=== PATIENT | female | born 1940 | race Caucasian/White ===

== ENCOUNTER 2017-01-06 20:19 | Inpatient (IN) | payer MEDICAID ==
[~2017-01-06] VITALS: Ht 134.6 cm; Wt 54.4 kg
[2017-01-06 20:30] VITALS: BP 152/90
[2017-01-06] MEDS ORDERED: ACIDOPHILUS CA1 EAC1 GT (20:51)
[2017-01-06] MEDS ORDERED: NEURONTIN100 MG GT (20:51)
[2017-01-06] MEDS ORDERED: MULTIVITAMINS1 EAC8 GT (20:51)
[2017-01-06] MEDS ORDERED: LEVOTHYROXINE75 MCG GT (20:51)
[2017-01-06] MEDS ORDERED: RIVASTIGMINE3 MG GT (20:51)
[2017-01-06] MEDS ORDERED: VITAMIN C500 M1 GT (20:51)
[2017-01-06] MEDS ORDERED: DUONEB 0.5-3(2.53 ML HHN (20:51)
[2017-01-06] MEDS ORDERED: ZINC SULFATE220 M1 GT (20:51)
[2017-01-06] MEDS ORDERED: NORCO 5-325 TA1 EACH GT (20:51)
[2017-01-06 22:00] VITALS: BP 167/80
[2017-01-06 22:15] LABS: ANION GAP 9 mmol/L (5-15); CARBON DIOXIDE 28 MMOL/L (21-32); CHLORIDE 103 MMOL/L (98-107); CREATININE 0.7 MG/DL (0.55-1.30); POTASSIUM 4.4 MMOL/L (3.5-5.1); SODIUM 139 MMOL/L (136-145)
[2017-01-06 22:16] LABS: INR 0.9 (0.9-1.1); PROTHROMBIN TIME 9.7 SEC (9.30-11.50)
[2017-01-06 22:28] LABS: ALANINE AMINOTRANSFERASE 18 U/L (12-78); ALBUMIN/GLOBULIN RATIO 0.5 (1.0-2.7); ASPARTATE AMINO TRANSFERASE 19 U/L (15-37); CKMB 2.1 NG/ML (0.0-3.6); TOTAL PROTEIN 8.5 G/DL (6.4-8.2)
[2017-01-06 23:10] VITALS: BP 154/68
[2017-01-06 23:13] LABS: BASOPHILS % (AUTO) 1.2 % (0.0-2.0); EOSINOPHILS % (AUTO) 3.3 % (0.0-3.0); LYMPHOCYTES % (AUTO) 28.3 % (20.0-45.0); MEAN CORPUSCULAR HEMOGLOBIN 27.2 PG (27.0-31.0); MEAN CORPUSCULAR HGB CONC 30.5 G/DL (32.0-36.0); MEAN CORPUSCULAR VOLUME 89 FL (80-99); MEAN PLATELET VOLUME 7.9 FL (6.5-10.1); MONOCYTES % (AUTO) 10.7 % (1.0-10.0); NEUTROPHILS % (AUTO) 56.6 % (45.0-75.0); PLATELET COUNT 254 K/UL (150-450); RED CELL DISTRIBUTION WIDTH 14.4 % (11.6-14.8); WHITE BLOOD COUNT 7.8 K/UL (4.8-10.8)
[2017-01-06 23:57] LABS: APPEARANCE,URINE CLEAR; KETONES,URINE NEGATIVE (NEGATIVE); LEUKOCYTE ESTERASE ,URINE 1+ (NEGATIVE); NITRITE,URINE NEGATIVE (NEGATIVE); PH,URINE 7 (4.5-8.0); PROTEIN,URINE NEGATIVE (NEGATIVE); UROBILINOGEN,URINE NORMAL MG/DL (0.0-1.0)
[2017-01-07 00:37] LABS: BACTERIA,URINE FEW /HPF; RBC,URINE 0-2 /HPF (0 - 2); SQUAMOUS EPITHELIAL CELL,UR FEW /LPF (NONE/OCC)
[2017-01-07] MEDS: Enoxaparin 80mg Inj SUBQ SCH ×2 (00:47→10:19)
[2017-01-07] MEDS ORDERED: Albuterol/Ipratropium 3ml neb HHN PRN (01:00)
[2017-01-07] MEDS ORDERED: Acetaminophen 650mg/20.3ml GT PRN (01:30)
--- NOTE | 2017-01-07 02:04 | Emergency Room Report ---
History of Present Illness General Chief Complaint: Lower Extremity Injury Source: Medical Record, EMS Present Illness HPI Patient is 76-year-old female presented after having increased left lower extremity swelling. She gradual onset of symptoms. Patient was sent in by Dr. Enrique for further evaluation and treatment. Patient prior history dementia. She was noted to be somewhat contracted. History is markedly limited by patient's mental status Allergies: Coded Allergies: No Known Allergies (Unverified , 01/06/17) Patient History Past Medical History: see triage record Reviewed Nursing Documentation: PMH: Agreed, PSxH: Agreed Nursing Documentation-PMH History Of Psychiatric Problem: Yes - ALZHEIMERS Review of Systems All Other Systems: limited - by mental status Physical Exam Vital Signs Date Time Temp Pulse Resp B/P (MAP) Pulse Ox O2 Delivery O2 Flow Rate FiO2 01/06/17 20:23 98.1 102 26 152/90 96 Nasal Cannula 2.0 Sp02 EP Interpretation: reviewed, normal General Appearance: alert, non-toxic, Chronically Ill Head: atraumatic Eyes: bilateral eye other - bilateral corneal scarring irregular pupils ENT: normal ENT inspection, hearing grossly normal, normal voice Neck: normal inspection, full range of motion, supple, no bony tend Respiratory: normal inspection, lungs clear, normal breath sounds, no respiratory distress, no retraction, no wheezing Cardiovascular #1: regular rate, rhythm, edema - left leg edema Gastrointestinal: normal inspection, normal bowel sounds, non tender, soft, no guarding, no hernia Genitourinary: no CVA tenderness Musculoskeletal: decreased range of motion Neurologic: alert, responsive, other - slow speech Psychiatric: anxious Medical Decision Making Diagnostic Impression: Primary Impression: DVT (deep venous thrombosis) ER Course Patient presented for extremity pain. Differential diagnosis included but was not limited to fracture, contusion, , deep venous thrombosis, vascular insufficiency, aortic aneurysm, cellulitis. Because of complexity of patient's case laboratory testing and imaging studies were ordered. The patient was noted to have evidence of a popliteal DVT. Patient was given Lovenox subcutaneous. Dr.Ali Arias contacted for inpatient management due to primary physician Labs Test 01/06/17 21:30 01/06/17 22:58 01/06/17 23:00 Prothrombin Time 9.7 SEC (9.30-11.50) Prothromb Time International Ratio 0.9 (0.9-1.1) Activated Partial Thromboplast Time 21 SEC (23-33) Sodium Level 139 MMOL/L (136-145) Potassium Level 4.4 MMOL/L (3.5-5.1) Chloride Level 103 MMOL/L (98-107) Carbon Dioxide Level 28 MMOL/L (21-32) Anion Gap 9 mmol/L (5-15) Blood Urea Nitrogen 18 mg/dL (7-18) Creatinine 0.7 MG/DL (0.55-1.30) Estimat Glomerular Filtration Rate mL/min (>60) Glucose Level 108 MG/DL (74-106) Lactic Acid Level 1.20 mmol/L (0.66-2.22) Calcium Level 9.0 MG/DL (8.5-10.1) Total Bilirubin 0.3 MG/DL (0.2-1.0) Aspartate Amino Transf (AST/SGOT) 19 U/L (15-37) Alanine Aminotransferase (ALT/SGPT) 18 U/L (12-78) Alkaline Phosphatase 228 U/L (46-116) Total Creatine Kinase 41 U/L (26-308) Creatine Kinase MB 2.1 NG/ML (0.0-3.6) Creatine Kinase MB Relative Index 5.1 Troponin I 0.023 ng/mL (0.000-0.056) Total Protein 8.5 G/DL (6.4-8.2) Albumin 3.0 G/DL (3.4-5.0) Globulin 5.5 g/dL Albumin/Globulin Ratio 0.5 (1.0-2.7) White Blood Count 7.8 K/UL (4.8-10.8) Red Blood Count 4.20 M/UL (4.20-5.40) Hemoglobin 11.4 G/DL (12.0-16.0) Hematocrit 37.5 % (37.0-47.0) Mean Corpuscular Volume 89 FL (80-99) Mean Corpuscular Hemoglobin 27.2 PG (27.0-31.0) Mean Corpuscular Hemoglobin Concent 30.5 G/DL (32.0-36.0) Red Cell Distribution Width 14.4 % (11.6-14.8) Platelet Count 254 K/UL (150-450) Mean Platelet Volume 7.9 FL (6.5-10.1) Neutrophils (%) (Auto) 56.6 % (45.0-75.0) Lymphocytes (%) (Auto) 28.3 % (20.0-45.0) Monocytes (%) (Auto) 10.7 % (1.0-10.0) Eosinophils (%) (Auto) 3.3 % (0.0-3.0) Basophils (%) (Auto) 1.2 % (0.0-2.0) Urine Color Pale yellow Urine Appearance Clear Urine pH 7 (4.5-8.0) Urine Specific [place] 1.005 (1.005-1.035) Urine Protein Negative (NEGATIVE) Urine Glucose (UA) Negative (NEGATIVE) Urine Ketones Negative (NEGATIVE) Urine Occult Blood Negative (NEGATIVE) Urine Nitrite Negative (NEGATIVE) Urine Bilirubin Negative (NEGATIVE) Urine Urobilinogen Normal MG/DL (0.0-1.0) Urine Leukocyte Esterase 1+ (NEGATIVE) Urine RBC 0-2 /HPF (0 - 2) Urine WBC 5-10 /HPF (0 - 2) Urine Squamous Epithelial Cells Few /LPF (NONE/OCC) Urine Bacteria Few /HPF (NONE) Last Vital Signs Date Time Temp Pulse Resp B/P (MAP) Pulse Ox O2 Delivery O2 Flow Rate FiO2 01/07/17 00:00 93 01/06/17 23:10 22 154/68 100 Nasal Cannula 3.0 01/06/17 20:30 98.1 Status: improved Disposition: HOME, SELF-CARE Condition: Stable Referrals: NON PHYSICIAN (PCP) Júnior Sahni Jan 07, 2017 02:04
[2017-01-07 04:12] VITALS: BP 190/97
[2017-01-07] MEDS: Norco 5mg/325mg tab GT PRN (05:10)
[2017-01-07 05:14] VITALS: BP 160/97
[2017-01-07 07:12] LABS: BASOPHILS % (AUTO) 1.1 % (0.0-2.0); EOSINOPHILS % (AUTO) 3.5 % (0.0-3.0); LYMPHOCYTES % (AUTO) 25.2 % (20.0-45.0); MEAN CORPUSCULAR HEMOGLOBIN 28.6 PG (27.0-31.0); MEAN CORPUSCULAR HGB CONC 32.2 G/DL (32.0-36.0); MEAN CORPUSCULAR VOLUME 89 FL (80-99); MEAN PLATELET VOLUME 8.6 FL (6.5-10.1); MONOCYTES % (AUTO) 11.3 % (1.0-10.0); NEUTROPHILS % (AUTO) 58.9 % (45.0-75.0); PLATELET COUNT 282 K/UL (150-450); RED BLOOD COUNT 4.16 M/UL (4.20-5.40); RED CELL DISTRIBUTION WIDTH 14.2 % (11.6-14.8); WHITE BLOOD COUNT 6.8 K/UL (4.8-10.8)
[2017-01-07 07:16] LABS: ALANINE AMINOTRANSFERASE 17 U/L (12-78); ALBUMIN/GLOBULIN RATIO 0.6 (1.0-2.7); ANION GAP 8 mmol/L (5-15); ASPARTATE AMINO TRANSFERASE 19 U/L (15-37); CALCIUM 8.8 MG/DL (8.5-10.1); CARBON DIOXIDE 26 MMOL/L (21-32); CHLORIDE 104 MMOL/L (98-107); CREATININE 0.7 MG/DL (0.55-1.30); POTASSIUM 4.2 MMOL/L (3.5-5.1); SODIUM 138 MMOL/L (136-145); TOTAL PROTEIN 8.1 G/DL (6.4-8.2)
[2017-01-07 08:18] VITALS: BP 176/96
[2017-01-07] MEDS ORDERED: Gabapentin 300 MG/6 ML Soln GT SCH (09:00)
[2017-01-07] MEDS: Ascorbic Acid 500mg tab GT SCH (10:14)
[2017-01-07] MEDS: Exelon 1.5mg cap GT SCH ×2 (10:14→17:09)
[2017-01-07] MEDS: Zinc Sulfate 220mg cap GT SCH (10:14)
[2017-01-07] MEDS: Calcium Carbonate 500mg w/Vit D 200iu tab GT SCH (10:15)
[2017-01-07] MEDS: Multivitamins W/Minerals 15 ML UDC GT SCH ×3 (10:15→17:08)
[2017-01-07] MEDS: Lactobacillus-GG tablet GT SCH ×3 (10:19→17:08)
[2017-01-07] MEDS ORDERED: HydrALAZINE 25mg tab GT PRN (11:30)
[2017-01-07 11:34] VITALS: BP 180/96
--- NOTE | 2017-01-07 11:41 | Diagnostic Imaging Report ---
Indication: SOB Technique: One view of the chest Comparison: none Findings: The heart is mildly enlarged. Inspiration is suboptimal. Mild generalized interstitial prominence is probably on the basis of senescent change. No focal airspace consolidation or effusions. There are old healed right rib fracture deformities. Impression: No definite acute process. Findings as noted This agrees with the preliminary interpretation provided by the emergency room physician
[2017-01-07] MEDS ORDERED: Metoprolol Tartrate 12.5mg TAB GT ONE (11:45)
--- NOTE | 2017-01-07 11:48 | Consultation ---
Consult Note Consult Note asked to eval for BP management pateint admitted for DVT Patient is 76-year-old female presented after having increased left lower extremity swelling. She gradual onset of symptoms. Patient was sent in by Dr. Enrique for further evaluation and treatment. Patient prior history dementia. She was noted to be somewhat contracted. History is markedly limited by patient's mental status History Of Psychiatric Problem: Yes - ALZHEIMERS patient's examined and data reviewed Assessment/Plan Imp: HTN- DVT- Anemia- Alzheimers- HypoThyroid- Plan: BP meds- Anemia pineda Monitor labs per orders MAGDY ALONSO Jan 07, 2017 11:48
[2017-01-07] MEDS: Gabapentin 300 MG/6 ML Soln GT SCH ×2 (14:05→17:08)
[2017-01-07 15:42] VITALS: BP 153/101
--- NOTE | 2017-01-07 16:25 | Cardiology Report ---
APPROVED REPORT EKG Measurement Heart [id number] Normal sinus rhythm Inferior infarct, age undetermined Abnormal ECG
[2017-01-07] MEDS ORDERED: Warfarin Sodium 5mg ORAL ONE (17:00)
--- NOTE | 2017-01-07 17:34 | Consultation ---
Consult Note Assessment/Plan pulm consult dict DVT lovenox coumadin CATRACHITA DELAROSA Jan 07, 2017 17:34
[2017-01-07 20:00] VITALS: BP 119/60
[2017-01-07] MEDS: Metoprolol Tartrate 12.5mg TAB GT SCH (20:22)
[2017-01-07] MEDS: Enoxaparin 60mg Inj SUBQ SCH (20:24)
[2017-01-08] VITALS: BP 113/63
--- NOTE | 2017-01-08 | Consultation ---
DATE OF CONSULTATION: PULMONARY CONSULTATION CONSULTING PHYSICIAN: Isiah Winslow M.D. HISTORY OF PRESENT ILLNESS: The patient is a 76-year-old woman with severe dementia who was sent to the emergency department because of left leg swelling. The history is limited to few documents sent with her. She was evaluated in the emergency department and found to have deep vein thrombosis and anticoagulants were given. I was called in consultation. PAST MEDICAL HISTORY: The records indicate that she had a recent left femur fracture, pathologic in nature, possibly due to osteoporosis. She had recent pneumonia and sepsis. There is a longer history of Alzheimer's dementia and hypothyroidism. She is under the care of Dr. Srini Scales at [facility]. ALLERGIES: None known. MEDICATIONS: In the nursing facility, she is on vitamin C, gabapentin, hydrocodone, albuterol, Atrovent, acidophilus, thyroxine, rivastigmine and zinc as well as vitamins. REVIEW OF SYSTEMS: Cannot be obtained. PHYSICAL EXAMINATION: VITAL SIGNS: The patient is hypertensive with blood pressure as high as 190/97 and 180/96. Today, the lowest blood pressure was 153/101. The heart rate is 108 to 113. The temperature is normal. Respirations are normal on nasal cannula. The saturation is 96%. GENERAL: The patient appears awake, but does not respond to verbal stimuli. She is markedly contracted. She appears chronically ill. HEENT: Head is normocephalic. NECK: No jugular vein distention. CHEST: Clear. CARDIAC: Rhythm is regular. Tachycardia. ABDOMEN: Soft with a gastric feeding tube in place. EXTREMITIES: Show some swelling of the left thigh and the knees are contracted up toward the chest. IMPRESSIONS: 1. Deep vein thrombosis, left proximal popliteal vein. 2. History of recent pathologic fracture, left femur. 3. Severe dementia with contractures. 4. Dysphagia with gastric tube. 5. Anemia with hemoglobin of 11.4. 6. Mild hyperglycemia. 7. Protein-calorie malnutrition with albumin of 2.9. PLAN: The patient will be given appropriate injectable anticoagulants and we will start Coumadin for longer-term management. Blood pressure control is under the direction of Dr. Sanchez for Nephrology. I will be happy to follow her with you in the hospital. Isiah Winslow M.D. DR: GARETH JOB#: [id number] CC: Jossie Enrique M.D.; Fax#: [phone] ISIAH WINSLOW M.D. ; FAX#: [phone]
--- NOTE | 2017-01-08 01:30 | Consultation ---
DATE OF CONSULTATION: 01/07/2017 ORTHOPEDIC CONSULTATION REQUESTING PHYSICIAN: Jossie Enrique M.D. HISTORY OF PRESENT ILLNESS: The patient is a 76-year-old female with increased lower extremity swelling who was sent in from the rehabilitation center by Dr. Enrique, concerned that the patient had a fracture of the femur. Orthopedic consultation was obtained for further care and recommendation. PAST MEDICAL HISTORY: Lower extremity contractures and Alzheimer's. PAST SURGICAL HISTORY: Unknown. MEDICATIONS: Reviewed from the intake chart. PHYSICAL EXAMINATION: The patient is a very contracted female. She is in bed. There is no obvious significant ecchymosis. There is some swelling of the left lower extremity. There is no obvious deformity, but severe contractures. Remaining exam is very limited. LABORATORY AND DIAGNOSTIC DATA: Ultrasound of lower extremities shows DVT. Imaging: Outside report from [facility] show recent femur fracture ASSESSMENT: 1. Left femur pathologic fracture secondary to severe osteoporsis/contractures. 2. Left lower extremity deep venous thrombosis. 3. Osteoporosis DISCUSSION: Clearly, she is not a candidate for any type of operative intervention given limited ambulation status, osteoporosis and recent DVT. At this point, recommendation is conservative treatment with appropriate pain medications. In terms of DVT, this can be treated by the PMD. Zacarias Barajas M.D. DR: Ashleigh JOB#: [id number] CC: BARAK
[2017-01-08 04:00] VITALS: BP 101/55
--- NOTE | 2017-01-08 04:01 | History and Physical Report ---
DATE OF ADMISSION: 01/06/2017 NOTE: INCOMPLETE DICTATION HISTORY OF PRESENT ILLNESS: The patient is nonverbal. He had advanced dementia. He was admitted for DVT. cannot get any history from the patient. The patient also has a history of recent left femoral fracture as well as a history of chronically old femoral fracture on the same left side. The patient has pathological fracture due to osteoporosis. The patient was admitted for acute DVT treatment as well. PAST MEDICAL HISTORY: Advanced dementia, neuropathy, hypertension, pathological fracture, osteoporosis, and hypothyroidism. The patient also has severe constipation. PAST SURGICAL HISTORY: None known. MEDICATIONS: Gabapentin, Levoxyl, multivitamin, and zinc sulfate. ALLERGIES: No known drug allergies. SOCIAL HISTORY: Unable to obtain. FAMILY HISTORY: Noncontributory. REVIEW OF SYSTEMS: Unable to obtain. The patient is nonverbal. PHYSICAL EXAMINATION: VITAL SIGNS: Temperature is 98.2 degrees, pulse 108, and blood pressure 163/101. HEENT: PERRLA. NECK: Supple. No lymphadenopathy. CHEST: Clear to auscultation. GI: Soft, nontender, and nondistended. No organomegaly. EXTREMITIES: No edema. Severe contractures. Nonverbal. Jossie Enrique M.D. DR: MISSY JOB#: [id number] CC:
[2017-01-08 07:47] LABS: BASOPHILS % (AUTO) 1.1 % (0.0-2.0); EOSINOPHILS % (AUTO) 3.5 % (0.0-3.0); LYMPHOCYTES % (AUTO) 30.4 % (20.0-45.0); MEAN CORPUSCULAR HEMOGLOBIN 28.7 PG (27.0-31.0); MEAN CORPUSCULAR HGB CONC 32.5 G/DL (32.0-36.0); MEAN CORPUSCULAR VOLUME 89 FL (80-99); MEAN PLATELET VOLUME 8.9 FL (6.5-10.1); MONOCYTES % (AUTO) 10.9 % (1.0-10.0); NEUTROPHILS % (AUTO) 54.2 % (45.0-75.0); PLATELET COUNT 284 K/UL (150-450); RED BLOOD COUNT 3.99 M/UL (4.20-5.40); WHITE BLOOD COUNT 6.6 K/UL (4.8-10.8)
[2017-01-08 08:01] LABS: PROTHROMBIN TIME 10.3 SEC (9.30-11.50)
[2017-01-08 08:15] VITALS: BP 144/73
--- NOTE | 2017-01-08 08:16 | Consultation ---
DATE OF CONSULTATION: 01/07/2017 HEMATOLOGY/ONCOLOGY CONSULTATION REQUESTING PHYSICIAN: Jossie Enrique M.D. REASON FOR CONSULTATION: Evaluation and treatment of DVT. IDENTIFYING DATA: Dear Dr. Enrique, The patient is a pleasant 76-year-old female who was diagnosed with nonocclusive thrombus in the proximal popliteal vein with contracture noted. The patient has been started on Lovenox and Coumadin. Her past medical history significant for DVT. Pulmonary team as well as Nephrology were consulted. The patient also has Alzheimer disease, hypothyroidism, currently is stable. Hematology service was consulted for further evaluation and treatment of DVT. PAST MEDICAL HISTORY: Hypertension, anemia, Alzheimer disorder, and hypothyroidism. PAST SURGICAL HISTORY: None reported. ALLERGIES: No known drug allergies. REVIEW OF SYSTEMS: CONSTITUTIONAL: No fevers, chills, or night sweats. SKIN: No rashes, bumps, or itching. HEENT: No headache, hearing or vision changes. BREASTS: No lumps, pain, or discharge. PULMONARY: No cough or shortness of breath. GASTROINTESTINAL: No nausea, vomiting, or diarrhea. GENITOURINARY: No dysuria, frequency, or urgency. MUSCULOSKELETAL: No joint swelling, muscle pain, or trauma. PHYSICAL EXAMINATION: GENERAL: No acute distress. VITAL SIGNS: Reviewed. PULMONARY: Decreased breath sounds. CARDIOVASCULAR: Regular rate. No S3 or S4. ABDOMEN: Soft, nontender, and nondistended. EXTREMITIES: There is 1+ edema. LABORATORY AND DIAGNOSTIC DATA: WBC of 6.8, hemoglobin 11.9, hematocrit 36, and platelet count 182,000. INR 0.9. Chemistry, BUN of 19 and creatinine 0.7. ASSESSMENT AND RECOMMENDATIONS: 1. Deep vein thrombosis history, left leg. The patient started on Coumadin and Lovenox. Maintain INR between 2 and 3. The patient will need three months of anticoagulation. 2. Anemia secondary to chronic disease, mild. Continue to closely monitor. 3. Coagulopathy secondary to use of Coumadin. 4. Azotemia secondary to dehydration. 5. Malnutrition secondary to decreased p.o. intake. 6. Acute kidney injury. Unclear related to dehydration. Continue to closely monitor. Nephrology consulted. 7. Alzheimer disorder. Continue to monitor as an outpatient. I appreciate the consultation. Frandy Flores M.D. DR: JANN JOB#: [id number] CC:
--- NOTE | 2017-01-08 08:16 | History and Physical Report ---
DATE OF ADMISSION: 01/06/2017 HISTORY OF PRESENT ILLNESS: The patient is nonverbal and is admitted for acute DVT by Dr. Winslow and acute left femoral fracture. The patient osteoporosis. The patient is nonverbal. Cannot get any history from the patient. PAST MEDICAL HISTORY: Significant for advanced dementia, pathological fracture, osteoporosis, hypothyroidism, neuropathy, advanced dementia, severe contractures. ALLERGIES: No known allergies. PAST SURGICAL HISTORY: None. MEDICATIONS: Vitamin C, Neurontin, Levoxyl, multivitamin, . FAMILY HISTORY: Unable to obtain. SOCIAL HISTORY: Unable to obtain. REVIEW OF SYSTEMS: Unable to obtain. PHYSICAL EXAMINATION: VITAL SIGNS: Temperature is 98.2, pulse 108, blood pressure 163/101. HEENT: PERRLA. NECK: Supple. No lymphadenopathy. CHEST: Clear to auscultation. GASTROINTESTINAL: Soft, nontender and nondistended. No organomegaly. EXTREMITIES: Severe contractures. the patient does not show any grimaces. Nonverbal. LABORATORY AND DIAGNOSTIC DATA: Sodium 139, potassium 3.4, BUN of 15, creatinine 0.7 and glucose of 108. WBC of 7.8, hemoglobin 11.4 and platelets of 254. ASSESSMENT AND PLAN: 1. Deep venous thrombosis. I have asked to see the patient for the treatment of deep venous thrombosis. 2. Acute femoral fracture. I have asked to see the patient. At this point, I am doubtful that the patient will be a surgical candidate given her severe and DVT. Definitely I doubt that she will be a surgical candidate, although I will wait for . 3. Hypertension. I have asked Dr. Sanchez to see the patient for hypertension. Jossie Enrique M.D. DR: TIN JOB#: [id number] CC:
[2017-01-08 08:28] LABS: ALANINE AMINOTRANSFERASE 23 U/L (12-78); ALBUMIN/GLOBULIN RATIO 0.5 (1.0-2.7); ANION GAP 8 mmol/L (5-15); ASPARTATE AMINO TRANSFERASE 20 U/L (15-37); CALCIUM 8.7 MG/DL (8.5-10.1); CARBON DIOXIDE 28 MMOL/L (21-32); CHLORIDE 104 MMOL/L (98-107); CHOLESTEROL 133 MG/DL (< 200); CREATININE 0.7 MG/DL (0.55-1.30); CRP QUANT 2.2 mg/dL (0.00-0.90); FERRITIN 202 NG/ML (8-388); MAGNESIUM 2.1 MG/DL (1.8-2.4); PHOSPHORUS 3.9 MG/DL (2.5-4.9); POTASSIUM 3.7 MMOL/L (3.5-5.1); SODIUM 140 MMOL/L (136-145); THYROID STIMULATING HORMONE 11.546 uiU/mL (0.360-3.740); TOTAL PROTEIN 7.9 G/DL (6.4-8.2); URIC ACID 4.3 MG/DL (2.6-7.2)
[2017-01-08 08:50] LABS: HEMOGLOBIN A1C 6.3 % (4.3-6.0)
[2017-01-08] MEDS: Multivitamins W/Minerals 15 ML UDC GT SCH ×3 (08:51→17:57)
[2017-01-08] MEDS: Gabapentin 300 MG/6 ML Soln GT SCH ×3 (08:51→17:57)
[2017-01-08] MEDS: Exelon 1.5mg cap GT SCH ×2 (08:51→17:57)
[2017-01-08] MEDS: Ascorbic Acid 500mg tab GT SCH (08:52)
[2017-01-08] MEDS: Calcium Carbonate 500mg w/Vit D 200iu tab GT SCH (08:52)
[2017-01-08] MEDS: Lactobacillus-GG tablet GT SCH ×3 (08:52→17:57)
[2017-01-08] MEDS: Zinc Sulfate 220mg cap GT SCH (08:52)
[2017-01-08] MEDS: Enoxaparin 60mg Inj SUBQ SCH ×2 (08:53→20:18)
[2017-01-08] MEDS: Metoprolol Tartrate 12.5mg TAB GT SCH ×2 (08:53→20:17)
[2017-01-08 09:41] LABS: IRON 40 ug/dL (50-175); TOTAL IRON BINDING CAPACITY 314 ug/dL (250-450)
[2017-01-08 10:32] LABS: FOLIC ACID > 20.0 NG/ML (3.1-17.5)
[2017-01-08 11:20] VITALS: BP 132/76
--- NOTE | 2017-01-08 12:37 | Nephrology Progress Note ---
Assessment/Plan Problem List: (1) DVT (deep venous thrombosis) (2) HTN, goal below 130/80 (3) Anemia (4) Hypothyroidism Assessment HTN- controlled DVT- Anemia- Low ferritin Alzheimers- HypoThyroid- TSH 11 Plan Plan: BP meds- IV Iron Monitor labs per orders Subjective ROS Limited/Unobtainable: No Constitutional: Reports: malaise Objective Objective Last 24 Hour Vital Signs Date Time Temp Pulse Resp B/P (MAP) Pulse Ox O2 Delivery O2 Flow Rate FiO2 01/08/17 12:07 Nasal Cannula 2.0 28 01/08/17 12:07 96 Nasal Cannula 2.0 28 01/08/17 12:07 83 22 Nasal Cannula 2.0 28 01/08/17 11:20 97.7 88 22 132/76 95 Nasal Cannula 3.0 01/08/17 08:53 95 144/73 01/08/17 08:15 97.9 95 20 144/73 96 Nasal Cannula 3.0 01/08/17 08:00 92 01/08/17 04:00 97.9 85 21 101/55 97 Nasal Cannula 2.0 01/08/17 04:00 83 01/08/17 00:00 98.2 82 20 113/63 97 Nasal Cannula 2.0 01/08/17 00:00 83 01/07/17 21:47 Nasal Cannula 3.0 32 01/07/17 21:47 95 Nasal Cannula 3.0 32 01/07/17 21:47 95 20 Nasal Cannula 3.0 32 01/07/17 20:22 94 156/98 01/07/17 20:00 98.1 95 20 119/60 95 Nasal Cannula 2.0 01/07/17 20:00 90 01/07/17 16:00 90 01/07/17 15:42 98.2 108 20 153/101 96 Nasal Cannula 3.0 Intake and Output 01/08/17 01/09/17 19:00 07:00 # Voids 1 # Bowel Movements 2 Laboratory Tests 01/08/17 07:00: White Blood Count 6.6, Red Blood Count 3.99L, Hemoglobin 11.5L, Hematocrit 35.3L , Mean Corpuscular Volume 89, Mean Corpuscular Hemoglobin 28.7, Mean Corpuscular Hemoglobin Concent 32.5, Red Cell Distribution Width 15.0H, Platelet Count 284, Mean Platelet Volume 8.9, Neutrophils (%) (Auto) 54.2, Lymphocytes (%) (Auto) 30.4, Monocytes (%) (Auto) 10.9H, Eosinophils (%) (Auto) 3.5H, Basophils (%) (Auto) 1.1, Prothrombin Time 10.3, Prothromb Time International Ratio 1.0, Sodium Level 140, Potassium Level 3.7, Chloride Level 104, Carbon Dioxide Level 28, Anion Gap 8, Blood Urea Nitrogen 24H, Creatinine 0.7, Estimat Glomerular Filtration Rate , Glucose Level 130H, Hemoglobin A1c 6.3H, Uric Acid 4.3, Calcium Level 8.7, Phosphorus Level 3.9, Magnesium Level 2.1, Iron Level 40L, Total Iron Binding Capacity 314, Percent Iron Saturation 13L, Unsaturated Iron Binding 274, Ferritin 202, Total Bilirubin 0.5, Gamma Glutamyl Transpeptidase 18, Aspartate Amino Transf (AST/SGOT) 20, Alanine Aminotransferase (ALT/SGPT) 23, Alkaline Phosphatase 213H, C-Reactive Protein, Quantitative 2.2H, Pro-B-Type Natriuretic Peptide 2432H, Total Protein 7.9, Albumin 2.8L, Globulin 5.1, Albumin/Globulin Ratio 0.5L, Triglycerides Level 94 , Cholesterol Level 133, LDL Cholesterol 88, HDL Cholesterol 33L, Cholesterol/ HDL Ratio 4.0, Vitamin B12 Level 1189H, Folate > 20.0H, Thyroid Stimulating Hormone (TSH) 11.546H Height (Feet): 4 Height (Inches): 5.00 Weight (Pounds): 120 General Appearance: no apparent distress Cardiovascular: normal rate Respiratory/Chest: no respiratory distress Abdomen: soft Objective PE not changed MAGDY ALONSO Jan 08, 2017 12:37
[2017-01-08 16:00] VITALS: BP 94/69
--- NOTE | 2017-01-08 16:30 | Pulmonology Progress Note ---
Assessment/Plan Assessment/Plan 1. Deep vein thrombosis, left proximal popliteal vein. 2. History of recent pathologic fracture, left femur with deformity. 3. Severe dementia with contractures. 4. Dysphagia with gastric tube. 5. Anemia with hemoglobin of 11.4. 6. Mild hyperglycemia. 7. Protein-calorie malnutrition with albumin of 2.9. 8. HTN, controlled cont HHN high risk for pneumonia cont Lovenox, Coumadin prognosis poor dc planning Subjective ROS Limited/Unobtainable: Yes Allergies: Coded Allergies: No Known Allergies (Unverified , 01/06/17) Objective Last 24 Hour Vital Signs Date Time Temp Pulse Resp B/P (MAP) Pulse Ox O2 Delivery O2 Flow Rate FiO2 01/08/17 16:00 97.9 92 21 94/69 96 Nasal Cannula 2.0 01/08/17 13:47 86 22 97 Nasal Cannula 2.0 28 01/08/17 13:40 84 22 96 Nasal Cannula 2.0 28 01/08/17 12:07 Nasal Cannula 2.0 28 01/08/17 12:07 96 Nasal Cannula 2.0 28 01/08/17 12:07 83 22 Nasal Cannula 2.0 28 01/08/17 12:00 85 01/08/17 11:20 97.7 88 22 132/76 95 Nasal Cannula 3.0 01/08/17 08:53 95 144/73 01/08/17 08:15 97.9 95 20 144/73 96 Nasal Cannula 3.0 01/08/17 08:00 92 01/08/17 04:00 97.9 85 21 101/55 97 Nasal Cannula 2.0 01/08/17 04:00 83 01/08/17 00:00 98.2 82 20 113/63 97 Nasal Cannula 2.0 01/08/17 00:00 83 01/07/17 21:47 Nasal Cannula 3.0 32 01/07/17 21:47 95 Nasal Cannula 3.0 32 01/07/17 21:47 95 20 Nasal Cannula 3.0 32 01/07/17 20:22 94 156/98 01/07/17 20:00 98.1 95 20 119/60 95 Nasal Cannula 2.0 01/07/17 20:00 90 Intake and Output 01/08/17 01/09/17 19:00 07:00 Intake Total 340 ml Balance 340 ml Free Water 100 ml Tube Feeding 240 ml # Voids 1 # Bowel Movements 3 General Appearance: no acute distress HEENT: atraumatic Respiratory/Chest: rhonchi Cardiovascular: normal rate Abdomen: soft, non tender, no organomegaly, other - GT Extremities: no edema, other - contracted. LLE deformity. Microbiology Date/Time Source Procedure Growth Status 01/06/17 21:30 Blood Blood Culture - Preliminary NO GROWTH AFTER 24 HOURS Resulted 01/06/17 21:15 Blood Blood Culture - Preliminary NO GROWTH AFTER 24 HOURS Resulted 01/06/17 21:40 Nasal Nares MRSA Culture - Final Staphylococcus Aureus - Mrsa Complete 01/06/17 21:40 Rectum VRE Culture - Final Enterococcus Faecalis - Vre Complete Laboratory Tests 01/08/17 07:00: White Blood Count 6.6, Red Blood Count 3.99L, Hemoglobin 11.5L, Hematocrit 35.3L , Mean Corpuscular Volume 89, Mean Corpuscular Hemoglobin 28.7, Mean Corpuscular Hemoglobin Concent 32.5, Red Cell Distribution Width 15.0H, Platelet Count 284, Mean Platelet Volume 8.9, Neutrophils (%) (Auto) 54.2, Lymphocytes (%) (Auto) 30.4, Monocytes (%) (Auto) 10.9H, Eosinophils (%) (Auto) 3.5H, Basophils (%) (Auto) 1.1, Prothrombin Time 10.3, Prothromb Time International Ratio 1.0, Sodium Level 140, Potassium Level 3.7, Chloride Level 104, Carbon Dioxide Level 28, Anion Gap 8, Blood Urea Nitrogen 24H, Creatinine 0.7, Estimat Glomerular Filtration Rate , Glucose Level 130H, Hemoglobin A1c 6.3H, Uric Acid 4.3, Calcium Level 8.7, Phosphorus Level 3.9, Magnesium Level 2.1, Iron Level 40L, Total Iron Binding Capacity 314, Percent Iron Saturation 13L, Unsaturated Iron Binding 274, Ferritin 202, Total Bilirubin 0.5, Gamma Glutamyl Transpeptidase 18, Aspartate Amino Transf (AST/SGOT) 20, Alanine Aminotransferase (ALT/SGPT) 23, Alkaline Phosphatase 213H, C-Reactive Protein, Quantitative 2.2H, Pro-B-Type Natriuretic Peptide 2432H, Total Protein 7.9, Albumin 2.8L, Globulin 5.1, Albumin/Globulin Ratio 0.5L, Triglycerides Level 94 , Cholesterol Level 133, LDL Cholesterol 88, HDL Cholesterol 33L, Cholesterol/ HDL Ratio 4.0, Vitamin B12 Level 1189H, Folate > 20.0H, Thyroid Stimulating Hormone (TSH) 11.546H Current Medications Medications (Trade) Dose Ordered Sig/Jovani Route PRN Reason Start Time Stop Time Status Last Admin Dose Admin Acetaminophen (Tylenol) 650 mg Q4H PRN GT fever 01/07/17 01:30 02/06/17 01:29 Acetaminophen/ Hydrocodone Bitart (Buena 5/325) 1 tab Q8H PRN GT For Pain 01/07/17 01:00 01/14/17 00:59 01/07/17 05:10 Albuterol/ Ipratropium (Albuterol/ Ipratropium) 3 ml Q4H PRN HHN Shortness of Breath 01/07/17 01:00 01/12/17 00:59 01/08/17 13:40 Ascorbic Acid (Vitamin C) 500 mg DAILY GT 01/07/17 09:00 02/06/17 08:59 01/08/17 08:52 Enoxaparin Sodium (Lovenox) 60 mg EVERY 12 HOURS SUBQ 01/07/17 21:00 02/06/17 20:59 01/08/17 08:53 Gabapentin (Neurontin) 300 mg THREE TIMES A DAY GT 01/07/17 13:00 02/06/17 12:59 01/08/17 13:22 Hydralazine HCl (Apresoline) 25 mg Q4H PRN GT bp over 160 syst 01/07/17 11:30 02/06/17 11:29 01/07/17 12:12 Iron Sucrose 200 mg/Sodium Chloride 120 ml @ 240 mls/hr ONCE ONCE IV 01/08/17 21:00 01/08/17 21:29 Lactobacillus Acidophilus (Culturelle) 1 tab THREE TIMES A DAY GT 01/07/17 09:00 02/06/17 08:59 01/08/17 13:23 Levothyroxine Sodium (Synthroid) 75 mcg DAILY@0630 GT 01/07/17 06:30 02/06/17 06:29 01/08/17 06:08 Metoprolol Tartrate (Lopressor) 12.5 mg Q12HR GT 01/07/17 21:00 02/06/17 20:59 01/08/17 08:53 Multivitamins (Multivitamins W/ Minerals 15ml Liquid) 15 ml TID GT 01/07/17 09:00 02/06/17 08:59 01/08/17 13:23 Rivastigmine Tartrate (Exelon) 3 mg TWICE A DAY GT 01/07/17 09:00 02/06/17 08:59 01/08/17 08:51 Warfarin Sodium (Coumadin per pharmacy) 1 ea DAILY PRN MISC PER RX PROTOCOL 01/07/17 12:00 02/06/17 11:59 Warfarin Sodium (Coumadin) 5 mg COUMADIN ONCE GT 01/08/17 17:00 01/08/17 17:01 Zinc Sulfate (Zinc Sulfate) 220 mg DAILY GT 01/07/17 09:00 02/06/17 08:59 01/08/17 08:52 CATRACHITA DELAROSA Jan 08, 2017 16:30
--- NOTE | 2017-01-08 16:48 | Diagnostic Imaging Report ---
APPROVED REPORT CPT Code: 04805 Present Symptoms Lower Extremity Edema: Left Comments: Bilateral contracture. Technically difficult, limited study due to bilateral contracture. LEFT LEG: Venous imaging reveals acute, non-occlusive thrombus in the proximal popliteal vein. Imaging reveals patency of the common femoral, superficial femoral and calf veins. The greater saphenous vein is within normal limits. Dr. Sahni was informed of abnormal results at 22:05 hrs.
[2017-01-08] MEDS ORDERED: Warfarin Sodium 5mg GT ONE (17:00)
--- NOTE | 2017-01-08 19:03 | Wound Care Consultation ---
Wound Assessment Wound Assessment #1: Wound Number: 1 Wound Present on Admission: Yes New Wound: No Status Change of Wound: No Wound Location Body Site Modif: right, plantar Wound Location Body Site: metatarsal head - 5th Wound Type: pressure ulcer Lexy Test: Does not Lexy Pressure Ulcer Stage: Deep Tissue Injury Wound Thickness: Full Thickness Wound Length: 3.5 Wound Width: 3.5 Wound Depth: utd Percent of Wound Black/Brown: 100 Wound Drainage Amount: None Wound Drainage Odor: None/Absent Tissue Surrounding Wound: Intact Wound Assessment #2: Wound Number: 2 Wound Present on Admission: Yes New Wound: No Status Change of Wound: No Wound Location Body Site Modif: right, plantar Wound Location Body Site: toe - 5th Wound Type: pressure ulcer Lexy Test: Does not Lexy Pressure Ulcer Stage: Deep Tissue Injury Wound Thickness: Full Thickness Wound Length: 2.0 Wound Width: 2.0 Wound Depth: utd Percent of Wound Black/Brown: 100 Wound Drainage Amount: None Wound Drainage Odor: None/Absent Tissue Surrounding Wound: Intact Wound Assessment #3: Wound Number: 3 Wound Present on Admission: Yes New Wound: No Status Change of Wound: No Wound Location Body Site Modif: right, plantar Wound Location Body Site: toe - 4th Wound Type: pressure ulcer Lexy Test: Does not Lexy Pressure Ulcer Stage: Deep Tissue Injury Wound Thickness: Full Thickness Wound Length: 1.5 Wound Width: 1.5 Wound Depth: utd Percent of Wound Black/Brown: 100 Wound Drainage Amount: None Wound Drainage Odor: None/Absent Tissue Surrounding Wound: Intact Wound Assessment #4: Wound Number: 4 Wound Present on Admission: Yes New Wound: No Status Change of Wound: No Wound Location Body Site Modif: right, plantar Wound Location Body Site: toe - 3rd Wound Type: pressure ulcer Lexy Test: Does not Lexy Pressure Ulcer Stage: Deep Tissue Injury Wound Thickness: Full Thickness Wound Length: 0.2 Wound Width: 0.2 Wound Depth: utd Percent of Wound Black/Brown: 100 Wound Drainage Amount: None Wound Drainage Odor: None/Absent Tissue Surrounding Wound: Intact Wound Comment #1 Right plantar 5th metatarsal head DTI pressure ulcer #2 Right plantar 5th toe DTI pressure ulcer #3 Right plantar 4th toe DTI pressure ulcer #4 Right plantar 3rd toe DTI pressure ulcer Recommendation -Local wound care per protocol -Offload both heels -Heel protector on both heels -Low air loss mattress -Optimize nutrition -Keep clean and dry -Turn and reposition -Assess and f/u accordingly for any changes TOAN LARA RN Jan 08, 2017 19:03
[2017-01-08 20:05] VITALS: BP 132/67
--- NOTE | 2017-01-08 20:40 | General Progress Note ---
Assessment/Plan Problem List: (1) DVT (deep venous thrombosis) ICD Codes: I82.409 - Acute embolism and thrombosis of unspecified deep veins of unspecified lower extremity SNOMED: 840316048 Status: progressing Assessment/Plan dvt anti coagulation per heme/onc afebrile vitals stable femur fracture.non surgical per dr olmedo severe contracture pathlogical fx due to osteoporosis Subjective ROS Limited/Unobtainable: Yes Allergies: Coded Allergies: No Known Allergies (Unverified , 01/06/17) Objective Last 24 Hour Vital Signs Date Time Temp Pulse Resp B/P (MAP) Pulse Ox O2 Delivery O2 Flow Rate FiO2 01/08/17 20:17 94 132/64 01/08/17 20:05 98.2 82 20 132/67 94 Room Air 01/08/17 19:21 Nasal Cannula 2.0 28 01/08/17 19:20 98 Nasal Cannula 2.0 28 01/08/17 19:20 92 24 Nasal Cannula 2.0 28 01/08/17 16:00 97.9 92 21 94/69 96 Nasal Cannula 2.0 01/08/17 16:00 85 01/08/17 13:47 86 22 97 Nasal Cannula 2.0 28 01/08/17 13:40 84 22 96 Nasal Cannula 2.0 28 01/08/17 12:07 Nasal Cannula 2.0 28 01/08/17 12:07 96 Nasal Cannula 2.0 28 01/08/17 12:07 83 22 Nasal Cannula 2.0 28 01/08/17 12:00 85 01/08/17 11:20 97.7 88 22 132/76 95 Nasal Cannula 3.0 01/08/17 08:53 95 144/73 01/08/17 08:15 97.9 95 20 144/73 96 Nasal Cannula 3.0 01/08/17 08:00 92 01/08/17 04:00 97.9 85 21 101/55 97 Nasal Cannula 2.0 01/08/17 04:00 83 01/08/17 00:00 98.2 82 20 113/63 97 Nasal Cannula 2.0 01/08/17 00:00 83 01/07/17 21:47 Nasal Cannula 3.0 32 01/07/17 21:47 95 Nasal Cannula 3.0 32 01/07/17 21:47 95 20 Nasal Cannula 3.0 32 Intake and Output 01/08/17 01/09/17 19:00 07:00 Intake Total 340 ml Balance 340 ml Free Water 100 ml Tube Feeding 240 ml # Voids 1 # Bowel Movements 3 Laboratory Tests 01/08/17 07:00: White Blood Count 6.6, Red Blood Count 3.99L, Hemoglobin 11.5L, Hematocrit 35.3L , Mean Corpuscular Volume 89, Mean Corpuscular Hemoglobin 28.7, Mean Corpuscular Hemoglobin Concent 32.5, Red Cell Distribution Width 15.0H, Platelet Count 284, Mean Platelet Volume 8.9, Neutrophils (%) (Auto) 54.2, Lymphocytes (%) (Auto) 30.4, Monocytes (%) (Auto) 10.9H, Eosinophils (%) (Auto) 3.5H, Basophils (%) (Auto) 1.1, Prothrombin Time 10.3, Prothromb Time International Ratio 1.0, Sodium Level 140, Potassium Level 3.7, Chloride Level 104, Carbon Dioxide Level 28, Anion Gap 8, Blood Urea Nitrogen 24H, Creatinine 0.7, Estimat Glomerular Filtration Rate , Glucose Level 130H, Hemoglobin A1c 6.3H, Uric Acid 4.3, Calcium Level 8.7, Phosphorus Level 3.9, Magnesium Level 2.1, Iron Level 40L, Total Iron Binding Capacity 314, Percent Iron Saturation 13L, Unsaturated Iron Binding 274, Ferritin 202, Total Bilirubin 0.5, Gamma Glutamyl Transpeptidase 18, Aspartate Amino Transf (AST/SGOT) 20, Alanine Aminotransferase (ALT/SGPT) 23, Alkaline Phosphatase 213H, C-Reactive Protein, Quantitative 2.2H, Pro-B-Type Natriuretic Peptide 2432H, Total Protein 7.9, Albumin 2.8L, Globulin 5.1, Albumin/Globulin Ratio 0.5L, Triglycerides Level 94 , Cholesterol Level 133, LDL Cholesterol 88, HDL Cholesterol 33L, Cholesterol/ HDL Ratio 4.0, Vitamin B12 Level 1189H, Folate > 20.0H, Thyroid Stimulating Hormone (TSH) 11.546H Height (Feet): 4 Height (Inches): 5.00 Weight (Pounds): 120 General Appearance: confused Respiratory/Chest: lungs clear Jossie Enrique MD Jan 08, 2017 20:40
[2017-01-08] MEDS ORDERED: Iron Sucrose 200 MG in NS 110 ML IV ONE (21:00)
[2017-01-09] VITALS: BP 109/50
[2017-01-09] MEDS: Norco 5mg/325mg tab GT PRN (01:41)
[2017-01-09 04:00] VITALS: BP 160/88
[2017-01-09 06:01] LABS: PROTHROMBIN TIME 10.7 SEC (9.30-11.50)
[2017-01-09 08:00] VITALS: BP 104/66
[2017-01-09] MEDS: Exelon 1.5mg cap GT SCH ×2 (09:25→17:14)
[2017-01-09] MEDS: Zinc Sulfate 220mg cap GT SCH (09:25)
[2017-01-09] MEDS: Ascorbic Acid 500mg tab GT SCH (09:25)
[2017-01-09] MEDS: Gabapentin 300 MG/6 ML Soln GT SCH ×3 (09:26→17:25)
[2017-01-09] MEDS: Lactobacillus-GG tablet GT SCH ×3 (09:26→17:14)
[2017-01-09] MEDS: Multivitamins W/Minerals 15 ML UDC GT SCH ×3 (09:28→17:14)
[2017-01-09] MEDS: Enoxaparin 60mg Inj SUBQ SCH ×2 (09:28→20:55)
[2017-01-09] MEDS: Metoprolol Tartrate 12.5mg TAB GT SCH ×2 (09:44→20:59)
--- NOTE | 2017-01-09 09:44 | Pulmonology Progress Note ---
Assessment/Plan Assessment/Plan 1. Deep vein thrombosis, left proximal popliteal vein. 2. History of recent pathologic fracture, left femur with deformity. 3. Severe dementia with contractures. 4. Dysphagia with gastric tube. 5. Anemia with hemoglobin of 11.4. 6. Mild hyperglycemia. 7. Protein-calorie malnutrition with albumin of 2.9. 8. HTN, controlled 9. SVT paroxysmal 10. Gangrene R foot cont HHN atrovent only high risk for pneumonia cont Lovenox, Coumadin prognosis poor may need cardiology eval ?vasc surgery Subjective ROS Limited/Unobtainable: Yes Allergies: Coded Allergies: No Known Allergies (Unverified , 01/06/17) Objective Last 24 Hour Vital Signs Date Time Temp Pulse Resp B/P (MAP) Pulse Ox O2 Delivery O2 Flow Rate FiO2 01/09/17 08:00 100 01/09/17 08:00 97.0 104 18 104/66 97 Nasal Cannula 2.0 01/09/17 04:00 98.4 106 20 160/88 90 Nasal Cannula 2.0 01/09/17 04:00 103 01/09/17 02:40 98.2 01/09/17 00:00 85 01/09/17 00:00 98.9 86 20 109/50 90 Nasal Cannula 2.0 01/08/17 20:17 94 132/64 01/08/17 20:05 98.2 82 20 132/67 94 Room Air 01/08/17 20:00 83 01/08/17 19:21 Nasal Cannula 2.0 28 01/08/17 19:20 98 Nasal Cannula 2.0 28 01/08/17 19:20 92 24 Nasal Cannula 2.0 28 01/08/17 16:00 97.9 92 21 94/69 96 Nasal Cannula 2.0 01/08/17 16:00 85 01/08/17 13:47 86 22 97 Nasal Cannula 2.0 28 01/08/17 13:40 84 22 96 Nasal Cannula 2.0 28 01/08/17 12:07 Nasal Cannula 2.0 28 01/08/17 12:07 96 Nasal Cannula 2.0 28 01/08/17 12:07 83 22 Nasal Cannula 2.0 28 01/08/17 12:00 85 01/08/17 11:20 97.7 88 22 132/76 95 Nasal Cannula 3.0 Microbiology Date/Time Source Procedure Growth Status 01/06/17 21:30 Blood Blood Culture - Preliminary NO GROWTH AFTER 48 HOURS Resulted 01/06/17 21:15 Blood Blood Culture - Preliminary NO GROWTH AFTER 48 HOURS Resulted 01/06/17 21:40 Nasal Nares MRSA Culture - Final Staphylococcus Aureus - Mrsa Complete 01/06/17 21:40 Rectum VRE Culture - Final Enterococcus Faecalis - Vre Complete Laboratory Tests 01/09/17 05:20: Prothrombin Time 10.7, Prothromb Time International Ratio 1.0 Current Medications Medications (Trade) Dose Ordered Sig/Jovani Route PRN Reason Start Time Stop Time Status Last Admin Dose Admin Acetaminophen (Tylenol) 650 mg Q4H PRN GT fever 01/07/17 01:30 02/06/17 01:29 Acetaminophen/ Hydrocodone Bitart (Freedom 5/325) 1 tab Q8H PRN GT For Pain 01/07/17 01:00 01/14/17 00:59 01/09/17 01:41 Albuterol/ Ipratropium (Albuterol/ Ipratropium) 3 ml Q4H PRN HHN Shortness of Breath 01/07/17 01:00 01/12/17 00:59 01/08/17 13:40 Ascorbic Acid (Vitamin C) 500 mg DAILY GT 01/07/17 09:00 02/06/17 08:59 01/09/17 09:25 Enoxaparin Sodium (Lovenox) 60 mg EVERY 12 HOURS SUBQ 01/07/17 21:00 02/06/17 20:59 01/09/17 09:28 Gabapentin (Neurontin) 300 mg THREE TIMES A DAY GT 01/07/17 13:00 02/06/17 12:59 01/09/17 09:26 Hydralazine HCl (Apresoline) 25 mg Q4H PRN GT bp over 160 syst 01/07/17 11:30 02/06/17 11:29 01/07/17 12:12 Lactobacillus Acidophilus (Culturelle) 1 tab THREE TIMES A DAY GT 01/07/17 09:00 02/06/17 08:59 01/09/17 09:26 Levothyroxine Sodium (Synthroid) 75 mcg DAILY@0630 GT 01/07/17 06:30 02/06/17 06:29 01/09/17 05:51 Metoprolol Tartrate (Lopressor) 12.5 mg Q12HR GT 01/07/17 21:00 02/06/17 20:59 01/08/17 20:17 Multivitamins (Multivitamins W/ Minerals 15ml Liquid) 15 ml TID GT 01/07/17 09:00 02/06/17 08:59 01/09/17 09:28 Rivastigmine Tartrate (Exelon) 3 mg TWICE A DAY GT 01/07/17 09:00 02/06/17 08:59 01/09/17 09:25 Warfarin Sodium (Coumadin per pharmacy) 1 ea DAILY PRN MISC PER RX PROTOCOL 01/07/17 12:00 02/06/17 11:59 Zinc Sulfate (Zinc Sulfate) 220 mg DAILY GT 01/07/17 09:00 02/06/17 08:59 01/09/17 09:25 CATRACHITA DELAROSA Jan 09, 2017 09:44
[2017-01-09 12:00] VITALS: BP 122/64
--- NOTE | 2017-01-09 14:52 | Cardiac Electrophysiology PN ---
Subjective Subjective Cardiology consult dictated. [id number] Objective Last 24 Hour Vital Signs Date Time Temp Pulse Resp B/P (MAP) Pulse Ox O2 Delivery O2 Flow Rate FiO2 01/09/17 12:00 79 01/09/17 12:00 97.2 83 18 122/64 97 Room Air 01/09/17 09:44 104 104/66 01/09/17 08:00 100 01/09/17 08:00 97.0 104 18 104/66 97 Nasal Cannula 2.0 01/09/17 06:40 98 Nasal Cannula 2.0 28 01/09/17 06:40 Nasal Cannula 2.0 28 01/09/17 06:40 90 22 Nasal Cannula 2.0 28 01/09/17 04:00 98.4 106 20 160/88 90 Nasal Cannula 2.0 01/09/17 04:00 103 01/09/17 02:40 98.2 01/09/17 00:00 85 01/09/17 00:00 98.9 86 20 109/50 90 Nasal Cannula 2.0 01/08/17 20:17 94 132/64 01/08/17 20:05 98.2 82 20 132/67 94 Room Air 01/08/17 20:00 83 01/08/17 19:21 Nasal Cannula 2.0 28 01/08/17 19:20 98 Nasal Cannula 2.0 28 01/08/17 19:20 92 24 Nasal Cannula 2.0 28 01/08/17 16:00 97.9 92 21 94/69 96 Nasal Cannula 2.0 01/08/17 16:00 85 Intake and Output 01/09/17 01/10/17 19:00 07:00 # Bowel Movements 1 Laboratory Tests Test 01/09/17 05:20 Prothrombin Time 10.7 SEC (9.30-11.50) Prothromb Time International Ratio 1.0 (0.9-1.1) Microbiology Date/Time Source Procedure Growth Status 01/06/17 21:30 Blood Blood Culture - Preliminary NO GROWTH AFTER 48 HOURS Resulted 01/06/17 21:15 Blood Blood Culture - Preliminary NO GROWTH AFTER 48 HOURS Resulted 01/06/17 21:40 Nasal Nares MRSA Culture - Final Staphylococcus Aureus - Mrsa Complete 01/06/17 21:40 Rectum VRE Culture - Final Enterococcus Faecalis - Vre Complete PRANAV KRISHNAMURTHY Jan 09, 2017 14:51
[2017-01-09 16:00] VITALS: BP 130/65
[2017-01-09] MEDS ORDERED: Warfarin Sodium 7.5mg GT ONE (17:00)
--- NOTE | 2017-01-09 17:03 | General Progress Note ---
Assessment/Plan Assessment/Plan ASSESSMENT AND RECOMMENDATIONS: 1. Deep vein thrombosis history, left leg. The patient started on Coumadin and Lovenox. Maintain INR between 2 and 3. 2. Anemia secondary to chronic disease, mild. Continue to closely monitor. 3. Coagulopathy secondary to use of Coumadin. 4. Azotemia secondary to dehydration. 5. Malnutrition secondary to decreased p.o. intake. 6. Acute kidney injury. . Continue to closely monitor. Nephrology consulted. 7. Alzheimer disorder. Continue to monitor as an outpatient. Subjective Allergies: Coded Allergies: No Known Allergies (Unverified , 01/06/17) Objective Last 24 Hour Vital Signs Date Time Temp Pulse Resp B/P (MAP) Pulse Ox O2 Delivery O2 Flow Rate FiO2 01/09/17 16:00 96.0 86 17 130/65 96 Room Air 01/09/17 12:00 79 01/09/17 12:00 97.2 83 18 122/64 97 Room Air 01/09/17 09:44 104 104/66 01/09/17 08:00 100 01/09/17 08:00 97.0 104 18 104/66 97 Nasal Cannula 2.0 01/09/17 06:40 98 Nasal Cannula 2.0 28 01/09/17 06:40 Nasal Cannula 2.0 28 01/09/17 06:40 90 22 Nasal Cannula 2.0 28 01/09/17 04:00 98.4 106 20 160/88 90 Nasal Cannula 2.0 01/09/17 04:00 103 01/09/17 02:40 98.2 01/09/17 00:00 85 01/09/17 00:00 98.9 86 20 109/50 90 Nasal Cannula 2.0 01/08/17 20:17 94 132/64 01/08/17 20:05 98.2 82 20 132/67 94 Room Air 01/08/17 20:00 83 01/08/17 19:21 Nasal Cannula 2.0 28 01/08/17 19:20 98 Nasal Cannula 2.0 28 01/08/17 19:20 92 24 Nasal Cannula 2.0 28 Intake and Output 01/09/17 01/10/17 19:00 07:00 # Voids 2 # Bowel Movements 2 Laboratory Tests 01/09/17 05:20: Prothrombin Time 10.7, Prothromb Time International Ratio 1.0 Height (Feet): 4 Height (Inches): 5.00 Weight (Pounds): 120 Frandy Flores Jan 09, 2017 17:03
[2017-01-09 20:00] VITALS: BP 125/62
--- NOTE | 2017-01-09 20:57 | General Progress Note ---
Assessment/Plan Problem List: (1) DVT (deep venous thrombosis) ICD Codes: I82.409 - Acute embolism and thrombosis of unspecified deep veins of unspecified lower extremity SNOMED: 718352197 Status: progressing Assessment/Plan dvt anti coagulation per heme/onc s/p svt.consulted dr gimenez for it vitals stable new femur fracture.is non surgical and is pathological per dr olmedo due to osteoporosis severe contracture pathlogical fx due to osteoporosis Subjective Allergies: Coded Allergies: No Known Allergies (Unverified , 01/06/17) Objective Last 24 Hour Vital Signs Date Time Temp Pulse Resp B/P (MAP) Pulse Ox O2 Delivery O2 Flow Rate FiO2 01/09/17 20:00 99.0 96 20 125/62 97 Nasal Cannula 2.0 28 01/09/17 19:53 Nasal Cannula 2.0 28 01/09/17 19:52 95 Nasal Cannula 2.0 28 01/09/17 19:52 94 22 Nasal Cannula 2.0 28 01/09/17 16:00 89 01/09/17 16:00 96.0 86 17 130/65 96 Room Air 01/09/17 12:00 79 01/09/17 12:00 97.2 83 18 122/64 97 Room Air 01/09/17 09:44 104 104/66 01/09/17 08:00 100 01/09/17 08:00 97.0 104 18 104/66 97 Nasal Cannula 2.0 01/09/17 06:40 98 Nasal Cannula 2.0 28 01/09/17 06:40 Nasal Cannula 2.0 28 01/09/17 06:40 90 22 Nasal Cannula 2.0 28 01/09/17 04:00 98.4 106 20 160/88 90 Nasal Cannula 2.0 01/09/17 04:00 103 01/09/17 02:40 98.2 01/09/17 00:00 85 01/09/17 00:00 98.9 86 20 109/50 90 Nasal Cannula 2.0 Intake and Output 01/09/17 01/10/17 19:00 07:00 Intake Total 40 ml Balance 40 ml Tube Feeding 40 ml # Voids 3 # Bowel Movements 3 Laboratory Tests 01/09/17 05:20: Prothrombin Time 10.7, Prothromb Time International Ratio 1.0 Height (Feet): 4 Height (Inches): 5.00 Weight (Pounds): 120 Jossie Enrique MD Jan 09, 2017 20:57
[2017-01-09] MEDS ORDERED: Flu Vaccine Quadrivalent 0.5ml IM ONE (21:00)
[2017-01-10] VITALS (7 sets, daily range): BP systolic 123–182; BP diastolic 57–80
--- NOTE | 2017-01-10 02:01 | Consultation ---
DATE OF CONSULTATION: 01/09/2017 CARDIOLOGY CONSULTATION CONSULTING PHYSICIAN: Alberto Owens M.D. REFERRING PHYSICIAN: Jossie Enrique M.D. REASON FOR CONSULTATION: Tachycardia with heart rate of 180 beats per minute. HISTORY OF PRESENT ILLNESS: The patient is a 76-year-old lady with severe dementia who was sent to the emergency room for left leg swelling. The patient also has a history of osteoporosis. Further evaluation showed the patient actually had a pathologic fracture of left femur and DVT of the proximal popliteal vein. The patient was started on anticoagulation with Coumadin. A Cardiology consultation was obtained for further evaluation and management. The patient had episode of SVT at a rate of up to 185 beats per minute that self-terminated. PAST MEDICAL HISTORY: 1. Hypertension. 2. Osteoporosis. 3. History of recent pathologic femur fracture. 4. Alzheimer's disease. 5. Hypothyroidism. MEDICATIONS: Per reconciliation at the nursing facility. ALLERGIES: She has no known drug allergies. REVIEW OF SYSTEMS: Cannot be obtained due to her mental status. PHYSICAL EXAMINATION: VITAL SIGNS: Blood pressure is 122/64, pulse 83, respirations 18, and temperature 97.2. HEAD AND NECK: Showed no JVD. LUNGS: Clear. CARDIOVASCULAR: Shows regular S1 and S2 with no gallop or murmur. ABDOMEN: Soft. EXTREMITIES: Swelling of the left leg with restricted movement. LABORATORY AND DIAGNOSTIC DATA: Show white count of 6.6, hemoglobin 11.5, hematocrit 35.3, and platelet count of 284. Sodium 140, potassium 3.7, BUN 24, creatinine 0.7, and glucose of 130. Alkaline phosphatase is 213. BNP is 2432. TSH is 11. Telemetry strip showed episodes of atrial flutter with rapid ventricular response rate of 185 beats per minute with sudden onset and sudden termination. Her lower extremity Doppler showed acute distal popliteal DVT. EKG showed normal sinus rhythm with old inferior infarct. ASSESSMENT AND PLAN: 1. Supraventricular tachycardia. She is on metoprolol twice a day now we will increase to 25 mg twice a day. 2. Lower extremity deep venous thrombosis on Lovenox and Coumadin. 3. Hypertension again on metoprolol 25 mg twice a day as well as hydralazine as needed. 4. Hypothyroidism on Synthroid. 5. Dysphagia, status post percutaneous endoscopic gastrostomy placement. 6. Left femur pathological fracture. The patient was evaluated by Dr. Barajas found the patient is not a surgical candidate. Recommended pain management of medical therapy. Thank you very much, Dr. Jossie Enrique, for allowing me to participate in the care of this patient. Please do not hesitate to contact me for any questions regarding my evaluation. Alberto Owens M.D. DR: ILYA JOB#: [id number] CC:
[2017-01-10] MEDS: Ascorbic Acid 500mg tab GT SCH (08:15)
[2017-01-10] MEDS: Gabapentin 300 MG/6 ML Soln GT SCH ×3 (08:15→17:19)
[2017-01-10] MEDS: Exelon 1.5mg cap GT SCH ×2 (08:15→17:19)
[2017-01-10] MEDS: Multivitamins W/Minerals 15 ML UDC GT SCH ×3 (08:17→21:19)
[2017-01-10] MEDS: Metoprolol Tartrate 12.5mg TAB GT SCH ×2 (08:17→20:57)
[2017-01-10] MEDS: Zinc Sulfate 220mg cap GT SCH (08:17)
[2017-01-10 08:21] LABS: INR 1.1 (0.9-1.1); PROTHROMBIN TIME 11.4 SEC (9.30-11.50)
[2017-01-10] MEDS: Enoxaparin 60mg Inj SUBQ SCH (08:22)
[2017-01-10] MEDS: Lactobacillus-GG tablet GT SCH ×3 (08:24→17:18)
[2017-01-10] MEDS ORDERED: Sterile Water Irrig 1000ml IRRIG ONE (10:49)
[2017-01-10] MEDS ORDERED: NS 275ml ONE (10:49)
[2017-01-10] MEDS ORDERED: Tubing IV Secondary IV ONE (10:49)
--- NOTE | 2017-01-10 11:36 | Nephrology Progress Note ---
Assessment/Plan Problem List: (1) DVT (deep venous thrombosis) (2) HTN, goal below 130/80 (3) Anemia (4) Hypothyroidism Assessment HTN- controlled DVT- Anemia- Low ferritin Alzheimers- HypoThyroid- TSH 11 Plan Plan: BP meds- IV Iron Monitor labs per orders Subjective ROS Limited/Unobtainable: No Constitutional: Reports: malaise, weakness Objective Objective Last 24 Hour Vital Signs Date Time Temp Pulse Resp B/P (MAP) Pulse Ox O2 Delivery O2 Flow Rate FiO2 01/10/17 08:17 85 150/69 01/10/17 08:05 97.9 85 19 150/69 Nasal Cannula 2.0 01/10/17 08:00 96 20 Nasal Cannula 2.0 28 01/10/17 08:00 94 Nasal Cannula 2.0 28 01/10/17 08:00 81 01/10/17 08:00 Nasal Cannula 2.0 28 01/10/17 04:00 82 01/10/17 04:00 99.0 73 20 131/60 95 Endotracheal Tube 2.0 28 01/10/17 00:00 99.0 82 20 123/59 97 Endotracheal Tube 2.0 28 01/10/17 00:00 81 01/09/17 21:00 93 01/09/17 20:59 98 127/85 01/09/17 20:00 99.0 96 20 125/62 97 Nasal Cannula 2.0 28 01/09/17 19:53 Nasal Cannula 2.0 28 01/09/17 19:52 95 Nasal Cannula 2.0 28 01/09/17 19:52 94 22 Nasal Cannula 2.0 28 01/09/17 16:00 89 01/09/17 16:00 96.0 86 17 130/65 96 Room Air 01/09/17 12:00 79 01/09/17 12:00 97.2 83 18 122/64 97 Room Air Laboratory Tests 01/10/17 06:35: Prothrombin Time 11.4, Prothromb Time International Ratio 1.1, Troponin I 0.024 Height (Feet): 4 Height (Inches): 5.00 Weight (Pounds): 120 General Appearance: no apparent distress Abdomen: soft Objective PE not changed MAGDY ALONSO Jan 10, 2017 11:36
--- NOTE | 2017-01-10 16:32 | General Progress Note ---
Assessment/Plan Problem List: (1) DVT (deep venous thrombosis) ICD Codes: I82.409 - Acute embolism and thrombosis of unspecified deep veins of unspecified lower extremity SNOMED: 103506741 Assessment/Plan dvt subtherapuetic inr anti coagulation per heme/onc s/p svt.consulted dr gimenez for it still not therapeutic inr afebrile new femur fracture.is non surgical and is pathological per dr olmedo due to osteoporosis severe contracture pathlogical fx due to osteoporosis Subjective ROS Limited/Unobtainable: Yes Constitutional: Reports: no symptoms Allergies: Coded Allergies: No Known Allergies (Unverified , 01/06/17) Objective Last 24 Hour Vital Signs Date Time Temp Pulse Resp B/P (MAP) Pulse Ox O2 Delivery O2 Flow Rate FiO2 01/10/17 15:29 98.2 68 19 124/62 Nasal Cannula 2.0 01/10/17 12:00 81 01/10/17 11:44 96.8 86 19 137/57 Nasal Cannula 2.0 01/10/17 08:17 85 150/69 01/10/17 08:05 97.9 85 19 150/69 Nasal Cannula 2.0 01/10/17 08:00 96 20 Nasal Cannula 2.0 28 01/10/17 08:00 94 Nasal Cannula 2.0 28 01/10/17 08:00 81 01/10/17 08:00 Nasal Cannula 2.0 28 01/10/17 04:00 82 01/10/17 04:00 99.0 73 20 131/60 95 Endotracheal Tube 2.0 28 01/10/17 00:00 99.0 82 20 123/59 97 Endotracheal Tube 2.0 28 01/10/17 00:00 81 01/09/17 21:00 93 01/09/17 20:59 98 127/85 01/09/17 20:00 99.0 96 20 125/62 97 Nasal Cannula 2.0 28 01/09/17 19:53 Nasal Cannula 2.0 28 01/09/17 19:52 95 Nasal Cannula 2.0 28 01/09/17 19:52 94 22 Nasal Cannula 2.0 28 Laboratory Tests 01/10/17 06:35: Prothrombin Time 11.4, Prothromb Time International Ratio 1.1, Troponin I 0.024 Height (Feet): 4 Height (Inches): 5.00 Weight (Pounds): 120 EENT: PERRL/EOMI Neck: supple Respiratory/Chest: lungs clear Jossie Enrique MD Jan 10, 2017 16:32
--- NOTE | 2017-01-10 16:35 | Cardiac Electrophysiology PN ---
Assessment/Plan Assessment/Plan 1. Supraventricular tachycardia. Continue Metoprolol 25 mg twice a day. 2. Lower extremity deep venous thrombosis on Lovenox and Coumadin. 3. Hypertension on metoprolol 25 mg twice a day as well as hydralazine as needed. 4. Hypothyroidism on Synthroid. 5. Dysphagia, status post PEG 6. Left femur pathological fracture. Evaluated by Dr. Barajas found the patient is not a surgical candidate. DW RN Subjective Subjective Comfortable getting PEG feeding. No arrhythmias on tele. Objective Last 24 Hour Vital Signs Date Time Temp Pulse Resp B/P (MAP) Pulse Ox O2 Delivery O2 Flow Rate FiO2 01/10/17 15:29 98.2 68 19 124/62 Nasal Cannula 2.0 01/10/17 12:00 81 01/10/17 11:44 96.8 86 19 137/57 Nasal Cannula 2.0 01/10/17 08:17 85 150/69 01/10/17 08:05 97.9 85 19 150/69 Nasal Cannula 2.0 01/10/17 08:00 96 20 Nasal Cannula 2.0 28 01/10/17 08:00 94 Nasal Cannula 2.0 28 01/10/17 08:00 81 01/10/17 08:00 Nasal Cannula 2.0 28 01/10/17 04:00 82 01/10/17 04:00 99.0 73 20 131/60 95 Endotracheal Tube 2.0 28 01/10/17 00:00 99.0 82 20 123/59 97 Endotracheal Tube 2.0 28 01/10/17 00:00 81 01/09/17 21:00 93 01/09/17 20:59 98 127/85 01/09/17 20:00 99.0 96 20 125/62 97 Nasal Cannula 2.0 28 01/09/17 19:53 Nasal Cannula 2.0 28 01/09/17 19:52 95 Nasal Cannula 2.0 28 01/09/17 19:52 94 22 Nasal Cannula 2.0 28 Laboratory Tests Test 01/10/17 06:35 Prothrombin Time 11.4 SEC (9.30-11.50) Prothromb Time International Ratio 1.1 (0.9-1.1) Troponin I 0.024 ng/mL (0.000-0.056) Objective HEAD AND NECK: No JVD. LUNGS: Clear. CARDIOVASCULAR: Shows regular S1 and S2 with no gallop or murmur. ABDOMEN: Soft.PEG in place EXTREMITIES: Swelling of the left leg with restricted movement. PRANAV KRISHNAMURTHY Jan 10, 2017 16:35
[2017-01-10] MEDS ORDERED: Warfarin Sodium 7.5mg GT ONE (17:00)
--- NOTE | 2017-01-10 21:50 | General Progress Note ---
Assessment/Plan Assessment/Plan ASSESSMENT AND RECOMMENDATIONS: 1. Deep vein thrombosis, left leg. The patient started on Coumadin and Lovenox. Maintain INR between 2 and 3. 2. Anemia secondary to chronic disease, mild. Continue to closely monitor. 3. Coagulopathy secondary to use of Coumadin. 4. Azotemia secondary to dehydration. 5. Malnutrition secondary to decreased p.o. intake. 6. Acute kidney injury. . Continue to closely monitor. Nephrology consulted. 7. Alzheimer disorder. Continue to monitor as an outpatient. Subjective Allergies: Coded Allergies: No Known Allergies (Unverified , 01/06/17) All Systems: reviewed and negative except above Subjective NAD Objective Last 24 Hour Vital Signs Date Time Temp Pulse Resp B/P (MAP) Pulse Ox O2 Delivery O2 Flow Rate FiO2 01/10/17 20:57 96 160/67 01/10/17 20:45 160/67 95 Nasal Cannula 2.0 01/10/17 20:20 97.4 96 18 182/80 94 Room Air 01/10/17 19:30 Nasal Cannula 2.0 28 01/10/17 19:30 94 20 Nasal Cannula 2.0 28 01/10/17 19:30 95 Nasal Cannula 2.0 28 01/10/17 16:00 77 01/10/17 15:29 98.2 68 19 124/62 Nasal Cannula 2.0 01/10/17 12:00 81 01/10/17 11:44 96.8 86 19 137/57 Nasal Cannula 2.0 01/10/17 08:17 85 150/69 01/10/17 08:05 97.9 85 19 150/69 Nasal Cannula 2.0 01/10/17 08:00 96 20 Nasal Cannula 2.0 28 01/10/17 08:00 94 Nasal Cannula 2.0 28 01/10/17 08:00 81 01/10/17 08:00 Nasal Cannula 2.0 28 01/10/17 04:00 82 01/10/17 04:00 99.0 73 20 131/60 95 Endotracheal Tube 2.0 28 01/10/17 00:00 99.0 82 20 123/59 97 Endotracheal Tube 2.0 28 01/10/17 00:00 81 Intake and Output 01/10/17 01/11/17 19:00 07:00 Intake Total 540 ml Balance 540 ml Tube Feeding 540 ml # Voids 3 # Bowel Movements 3 Laboratory Tests 01/10/17 06:35: Prothrombin Time 11.4, Prothromb Time International Ratio 1.1, Troponin I 0.024 Height (Feet): 4 Height (Inches): 5.00 Weight (Pounds): 120 General Appearance: no apparent distress EENT: normal ENT inspection Neck: normal alignment Cardiovascular: normal peripheral pulses Respiratory/Chest: decreased breath sounds Edema: trace edema Frandy Flores Jan 10, 2017 21:50
--- NOTE | 2017-01-10 22:07 | Pulmonology Progress Note ---
Assessment/Plan Assessment/Plan 1. Deep vein thrombosis, left proximal popliteal vein. 2. History of recent pathologic fracture, left femur with deformity. 3. Severe dementia with contractures. 4. Dysphagia with gastric tube. 5. Anemia with hemoglobin of 11.4. 6. Mild hyperglycemia. 7. Protein-calorie malnutrition with albumin of 2.9. 8. HTN, controlled 9. SVT paroxysmal 10. Gangrene R foot cont HHN atrovent only high risk for pneumonia cont Lovenox, Coumadin prognosis poor may need cardiology eval ?vasc surgery Subjective ROS Limited/Unobtainable: Yes Allergies: Coded Allergies: No Known Allergies (Unverified , 01/06/17) Subjective obtunded on GT feeds no reports of cp nv or bleeding no fever moist cough observed on o2 Objective Last 24 Hour Vital Signs Date Time Temp Pulse Resp B/P (MAP) Pulse Ox O2 Delivery O2 Flow Rate FiO2 01/10/17 20:57 96 160/67 01/10/17 20:45 160/67 95 Nasal Cannula 2.0 01/10/17 20:20 97.4 96 18 182/80 94 Room Air 01/10/17 19:30 Nasal Cannula 2.0 28 01/10/17 19:30 94 20 Nasal Cannula 2.0 28 01/10/17 19:30 95 Nasal Cannula 2.0 28 01/10/17 16:00 77 01/10/17 15:29 98.2 68 19 124/62 Nasal Cannula 2.0 01/10/17 12:00 81 01/10/17 11:44 96.8 86 19 137/57 Nasal Cannula 2.0 01/10/17 08:17 85 150/69 01/10/17 08:05 97.9 85 19 150/69 Nasal Cannula 2.0 01/10/17 08:00 96 20 Nasal Cannula 2.0 28 01/10/17 08:00 94 Nasal Cannula 2.0 28 01/10/17 08:00 81 01/10/17 08:00 Nasal Cannula 2.0 28 01/10/17 04:00 82 01/10/17 04:00 99.0 73 20 131/60 95 Endotracheal Tube 2.0 28 01/10/17 00:00 99.0 82 20 123/59 97 Endotracheal Tube 2.0 28 01/10/17 00:00 81 Intake and Output 01/10/17 01/11/17 19:00 07:00 Intake Total 540 ml Balance 540 ml Tube Feeding 540 ml # Voids 3 # Bowel Movements 3 General Appearance: WD/WN HEENT: atraumatic, anicteric Respiratory/Chest: rhonchi Cardiovascular: normal rate, regular rhythm, murmur systolic Abdomen: soft, non tender, no organomegaly Extremities: other - edema Skin: no rash, lesions - foot with grangene Neurologic/Psychiatric: disoriented Musculoskeletal: normal muscle bulk Laboratory Tests 01/10/17 06:35: Prothrombin Time 11.4, Prothromb Time International Ratio 1.1, Troponin I 0.024 Current Medications Medications (Trade) Dose Ordered Sig/Jovani Route PRN Reason Start Time Stop Time Status Last Admin Dose Admin Acetaminophen (Tylenol) 650 mg Q4H PRN GT fever 01/07/17 01:30 02/06/17 01:29 Acetaminophen/ Hydrocodone Bitart ([place] 5/325) 1 tab Q8H PRN GT For Pain 01/07/17 01:00 01/14/17 00:59 01/09/17 01:41 Albuterol/ Ipratropium (Albuterol/ Ipratropium) 3 ml Q4H PRN HHN Shortness of Breath 01/07/17 01:00 01/12/17 00:59 01/08/17 13:40 Ascorbic Acid (Vitamin C) 500 mg DAILY GT 01/07/17 09:00 02/06/17 08:59 01/10/17 08:15 Enoxaparin Sodium (Lovenox) 60 mg DAILY SUBQ 01/11/17 09:00 02/10/17 08:59 Gabapentin (Neurontin) 300 mg THREE TIMES A DAY GT 01/07/17 13:00 02/06/17 12:59 01/10/17 17:19 Hydralazine HCl (Apresoline) 25 mg Q4H PRN GT bp over 160 syst 01/07/17 11:30 02/06/17 11:29 01/07/17 12:12 Lactobacillus Acidophilus (Culturelle) 1 tab THREE TIMES A DAY GT 01/07/17 09:00 02/06/17 08:59 01/10/17 17:18 Levothyroxine Sodium (Synthroid) 75 mcg DAILY@0630 GT 01/07/17 06:30 02/06/17 06:29 01/10/17 05:49 Metoprolol Tartrate (Lopressor) 25 mg Q12HR GT 01/09/17 21:00 02/08/17 20:59 01/10/17 20:57 Multivitamins (Multivitamins W/ Minerals 15ml Liquid) 15 ml TID GT 01/07/17 09:00 02/06/17 08:59 01/10/17 21:19 Rivastigmine Tartrate (Exelon) 3 mg TWICE A DAY GT 01/07/17 09:00 02/06/17 08:59 01/10/17 17:19 Warfarin Sodium (Coumadin per pharmacy) 1 ea DAILY PRN MISC PER RX PROTOCOL 01/07/17 12:00 02/06/17 11:59 Zinc Sulfate (Zinc Sulfate) 220 mg DAILY GT 01/07/17 09:00 02/06/17 08:59 01/10/17 08:17 AMBROCIO DOS SANTOS DO Jan 10, 2017 22:07
[2017-01-11 00:52] VITALS: BP 133/72
[2017-01-11 04:31] VITALS: BP 150/80
[2017-01-11 07:44] LABS: INR 1.2 (0.9-1.1); PROTHROMBIN TIME 13.1 SEC (9.30-11.50)
[2017-01-11 08:00] VITALS: BP 149/85
[2017-01-11] MEDS: Lactobacillus-GG tablet GT SCH ×3 (08:25→17:06)
[2017-01-11] MEDS: Metoprolol Tartrate 12.5mg TAB GT SCH ×2 (08:25→21:09)
[2017-01-11] MEDS: Exelon 1.5mg cap GT SCH ×2 (08:25→17:07)
[2017-01-11] MEDS: Zinc Sulfate 220mg cap GT SCH (08:25)
[2017-01-11] MEDS: Multivitamins W/Minerals 15 ML UDC GT SCH ×3 (08:25→17:06)
[2017-01-11] MEDS: Ascorbic Acid 500mg tab GT SCH (08:25)
[2017-01-11] MEDS: Gabapentin 300 MG/6 ML Soln GT SCH ×3 (08:32→17:08)
[2017-01-11 08:43] LABS: BASOPHILS % (AUTO) 0.9 % (0.0-2.0); MEAN CORPUSCULAR HEMOGLOBIN 28.1 PG (27.0-31.0); MEAN CORPUSCULAR HGB CONC 31.3 G/DL (32.0-36.0); MEAN CORPUSCULAR VOLUME 90 FL (80-99); MEAN PLATELET VOLUME 8.5 FL (6.5-10.1); MONOCYTES % (AUTO) 13.2 % (1.0-10.0); NEUTROPHILS % (AUTO) 47.9 % (45.0-75.0); PLATELET COUNT 289 K/UL (150-450); RED BLOOD COUNT 4.03 M/UL (4.20-5.40); RED CELL DISTRIBUTION WIDTH 15.3 % (11.6-14.8); WHITE BLOOD COUNT 6.8 K/UL (4.8-10.8)
[2017-01-11 08:52] LABS: ALANINE AMINOTRANSFERASE 14 U/L (12-78); ALBUMIN/GLOBULIN RATIO 0.5 (1.0-2.7); ANION GAP 6 mmol/L (5-15); ASPARTATE AMINO TRANSFERASE 20 U/L (15-37); CALCIUM 8.8 MG/DL (8.5-10.1); CARBON DIOXIDE 29 MMOL/L (21-32); CHLORIDE 108 MMOL/L (98-107); CREATININE 0.7 MG/DL (0.55-1.30); POTASSIUM 4.1 MMOL/L (3.5-5.1); SODIUM 143 MMOL/L (136-145); TOTAL PROTEIN 7.9 G/DL (6.4-8.2)
[2017-01-11] MEDS ORDERED: Enoxaparin 60mg Inj SUBQ SCH (09:00)
--- NOTE | 2017-01-11 10:47 | Pulmonology Progress Note ---
Assessment/Plan Assessment/Plan 1. Deep vein thrombosis, left proximal popliteal vein. 2. History of recent pathologic fracture, left femur with deformity. 3. Severe dementia with contractures. 4. Dysphagia with gastric tube. 5. Anemia with hemoglobin of 11.4. 6. Mild hyperglycemia. 7. Protein-calorie malnutrition with albumin of 2.9. 8. HTN, controlled 9. SVT paroxysmal 10. Gangrene R foot cont HHN atrovent only high risk for pneumonia and aspiration GT feeds only cont Lovenox, Coumadin per Rx prognosis poor may need cardiology eval ?vasc surgery Subjective ROS Limited/Unobtainable: Yes Allergies: Coded Allergies: No Known Allergies (Unverified , 01/06/17) Subjective obtunded, no change from ysterday on GT feeds no reports of cp nv or bleeding no fever moist cough does not get oob on o2 Objective Last 24 Hour Vital Signs Date Time Temp Pulse Resp B/P (MAP) Pulse Ox O2 Delivery O2 Flow Rate FiO2 01/11/17 08:25 100 149/85 01/11/17 08:00 101 01/11/17 08:00 98.1 100 20 149/85 97 Nasal Cannula 2.0 01/11/17 07:21 Nasal Cannula 2.0 28 01/11/17 07:20 96 Nasal Cannula 2.0 28 01/11/17 07:20 98 20 Nasal Cannula 2.0 28 01/11/17 04:31 97.7 92 18 150/80 97 Nasal Cannula 01/11/17 03:35 76 01/11/17 00:52 96.7 90 18 133/72 96 Nasal Cannula 01/10/17 23:53 86 01/10/17 20:57 96 160/67 01/10/17 20:45 160/67 95 Nasal Cannula 2.0 01/10/17 20:20 97.4 96 18 182/80 94 Room Air 01/10/17 19:30 Nasal Cannula 2.0 28 01/10/17 19:30 94 20 Nasal Cannula 2.0 28 01/10/17 19:30 95 Nasal Cannula 2.0 28 01/10/17 19:23 93 01/10/17 16:00 77 01/10/17 15:29 98.2 68 19 124/62 Nasal Cannula 2.0 01/10/17 12:00 81 01/10/17 11:44 96.8 86 19 137/57 Nasal Cannula 2.0 General Appearance: cachetic HEENT: atraumatic, anicteric Respiratory/Chest: rhonchi Cardiovascular: normal rate, murmur systolic Extremities: other - [place] Skin: lesions - toes, gangene Neurologic/Psychiatric: disoriented Laboratory Tests 01/11/17 04:55: White Blood Count 6.8, Red Blood Count 4.03L, Hemoglobin 11.3L, Hematocrit 36.1L , Mean Corpuscular Volume 90, Mean Corpuscular Hemoglobin 28.1, Mean Corpuscular Hemoglobin Concent 31.3L, Red Cell Distribution Width 15.3H, Platelet Count 289, Mean Platelet Volume 8.5, Neutrophils (%) (Auto) 47.9, Lymphocytes (%) (Auto) 35.0, Monocytes (%) (Auto) 13.2H, Eosinophils (%) (Auto) 3.0, Basophils (%) (Auto) 0.9, Prothrombin Time 13.1H, Prothromb Time International Ratio 1.2H, Sodium Level 143, Potassium Level 4.1, Chloride Level 108H, Carbon Dioxide Level 29, Anion Gap 6, Blood Urea Nitrogen 18, Creatinine 0.7, Estimat Glomerular Filtration Rate , Glucose Level 133H, Calcium Level 8.8 , Total Bilirubin 0.3, Aspartate Amino Transf (AST/SGOT) 20, Alanine Aminotransferase (ALT/SGPT) 14, Alkaline Phosphatase 195H, Total Protein 7.9, Albumin 2.8L, Globulin 5.1, Albumin/Globulin Ratio 0.5L Current Medications Medications (Trade) Dose Ordered Sig/Jovani Route PRN Reason Start Time Stop Time Status Last Admin Dose Admin Acetaminophen (Tylenol) 650 mg Q4H PRN GT fever 01/07/17 01:30 02/06/17 01:29 Acetaminophen/ Hydrocodone Bitart ([place] 5/325) 1 tab Q8H PRN GT For Pain 01/07/17 01:00 01/14/17 00:59 01/09/17 01:41 Albuterol/ Ipratropium (Albuterol/ Ipratropium) 3 ml Q4H PRN HHN Shortness of Breath 01/07/17 01:00 01/12/17 00:59 01/08/17 13:40 Ascorbic Acid (Vitamin C) 500 mg DAILY GT 01/07/17 09:00 02/06/17 08:59 01/11/17 08:25 Enoxaparin Sodium (Lovenox) 60 mg DAILY SUBQ 01/11/17 09:00 02/10/17 08:59 01/11/17 08:36 Gabapentin (Neurontin) 300 mg THREE TIMES A DAY GT 01/07/17 13:00 02/06/17 12:59 01/11/17 08:32 Hydralazine HCl (Apresoline) 25 mg Q4H PRN GT bp over 160 syst 01/07/17 11:30 02/06/17 11:29 01/07/17 12:12 Lactobacillus Acidophilus (Culturelle) 1 tab THREE TIMES A DAY GT 01/07/17 09:00 02/06/17 08:59 01/11/17 08:25 Levothyroxine Sodium (Synthroid) 75 mcg DAILY@0630 GT 01/07/17 06:30 02/06/17 06:29 01/11/17 05:37 Metoprolol Tartrate (Lopressor) 25 mg Q12HR GT 01/09/17 21:00 02/08/17 20:59 01/11/17 08:25 Multivitamins (Multivitamins W/ Minerals 15ml Liquid) 15 ml TID GT 01/07/17 09:00 02/06/17 08:59 01/11/17 08:25 Rivastigmine Tartrate (Exelon) 3 mg TWICE A DAY GT 01/07/17 09:00 02/06/17 08:59 01/11/17 08:25 Warfarin Sodium (Coumadin per pharmacy) 1 ea DAILY PRN MISC PER RX PROTOCOL 01/07/17 12:00 02/06/17 11:59 Warfarin Sodium (Coumadin) 10 mg COUMADIN ONCE GT 01/11/17 17:00 01/11/17 17:01 Zinc Sulfate (Zinc Sulfate) 220 mg DAILY GT 01/07/17 09:00 02/06/17 08:59 01/11/17 08:25 AMBROCIO DOS SANTOS DO Jan 11, 2017 10:47
--- NOTE | 2017-01-11 11:58 | Nephrology Progress Note ---
Assessment/Plan Problem List: (1) DVT (deep venous thrombosis) (2) HTN, goal below 130/80 (3) Anemia (4) Hypothyroidism Assessment HTN- controlled DVT- Anemia- Low ferritin Alzheimers- HypoThyroid- TSH 11 Plan Plan: BP meds- IV Iron Monitor labs per orders Subjective ROS Limited/Unobtainable: No Constitutional: Reports: malaise Objective Objective Last 24 Hour Vital Signs Date Time Temp Pulse Resp B/P (MAP) Pulse Ox O2 Delivery O2 Flow Rate FiO2 01/11/17 08:25 100 149/85 01/11/17 08:00 101 01/11/17 08:00 98.1 100 20 149/85 97 Nasal Cannula 2.0 01/11/17 07:21 Nasal Cannula 2.0 28 01/11/17 07:20 96 Nasal Cannula 2.0 28 01/11/17 07:20 98 20 Nasal Cannula 2.0 28 01/11/17 04:31 97.7 92 18 150/80 97 Nasal Cannula 01/11/17 03:35 76 01/11/17 00:52 96.7 90 18 133/72 96 Nasal Cannula 01/10/17 23:53 86 01/10/17 20:57 96 160/67 01/10/17 20:45 160/67 95 Nasal Cannula 2.0 01/10/17 20:20 97.4 96 18 182/80 94 Room Air 01/10/17 19:30 Nasal Cannula 2.0 28 01/10/17 19:30 94 20 Nasal Cannula 2.0 28 01/10/17 19:30 95 Nasal Cannula 2.0 28 01/10/17 19:23 93 01/10/17 16:00 77 01/10/17 15:29 98.2 68 19 124/62 Nasal Cannula 2.0 01/10/17 12:00 81 Laboratory Tests 01/11/17 04:55: White Blood Count 6.8, Red Blood Count 4.03L, Hemoglobin 11.3L, Hematocrit 36.1L , Mean Corpuscular Volume 90, Mean Corpuscular Hemoglobin 28.1, Mean Corpuscular Hemoglobin Concent 31.3L, Red Cell Distribution Width 15.3H, Platelet Count 289, Mean Platelet Volume 8.5, Neutrophils (%) (Auto) 47.9, Lymphocytes (%) (Auto) 35.0, Monocytes (%) (Auto) 13.2H, Eosinophils (%) (Auto) 3.0, Basophils (%) (Auto) 0.9, Prothrombin Time 13.1H, Prothromb Time International Ratio 1.2H, Sodium Level 143, Potassium Level 4.1, Chloride Level 108H, Carbon Dioxide Level 29, Anion Gap 6, Blood Urea Nitrogen 18, Creatinine 0.7, Estimat Glomerular Filtration Rate , Glucose Level 133H, Calcium Level 8.8 , Total Bilirubin 0.3, Aspartate Amino Transf (AST/SGOT) 20, Alanine Aminotransferase (ALT/SGPT) 14, Alkaline Phosphatase 195H, Total Protein 7.9, Albumin 2.8L, Globulin 5.1, Albumin/Globulin Ratio 0.5L Height (Feet): 4 Height (Inches): 5.00 Weight (Pounds): 120 General Appearance: no apparent distress Objective PE not changed MAGDY ALONSO Jan 11, 2017 11:58
[2017-01-11 12:43] VITALS: BP 144/85
[2017-01-11 16:30] VITALS: BP 142/80
[2017-01-11] MEDS ORDERED: Warfarin Sodium 10mg GT ONE (17:00)
[2017-01-11] MEDS ORDERED: Sterile Water Irrig 1000ml IRRIG ONE (19:03)
[2017-01-11 20:14] VITALS: BP 106/60
[2017-01-11] MEDS: Enoxaparin 60mg Inj SUBQ SCH (21:05)
--- NOTE | 2017-01-11 21:33 | General Progress Note ---
Assessment/Plan Problem List: (1) DVT (deep venous thrombosis) ICD Codes: I82.409 - Acute embolism and thrombosis of unspecified deep veins of unspecified lower extremity SNOMED: 400039969 Status: progressing Assessment/Plan dvt subtherapuetic inr anti coagulation per heme/onc s/p svt.consulted dr gimenez for it still not therapeutic new femur fracture.is non surgical and is pathological per dr olmedo due to osteoporosis severe contracture pathlogical fx due to osteoporosis no bleeding reviewed chart and labs Subjective ROS Limited/Unobtainable: Yes Allergies: Coded Allergies: No Known Allergies (Unverified , 01/06/17) Objective Last 24 Hour Vital Signs Date Time Temp Pulse Resp B/P (MAP) Pulse Ox O2 Delivery O2 Flow Rate FiO2 01/11/17 21:09 80 106/60 01/11/17 20:14 98.2 80 18 106/60 96 Nasal Cannula 01/11/17 19:30 84 20 Nasal Cannula 2.0 28 01/11/17 19:30 96 Nasal Cannula 2.0 28 01/11/17 19:30 Nasal Cannula 2.0 28 01/11/17 16:30 97.0 85 20 142/80 95 Nasal Cannula 2.0 01/11/17 16:00 75 01/11/17 12:43 98.5 89 22 144/85 97 Nasal Cannula 2.0 01/11/17 12:00 72 01/11/17 08:25 100 149/85 01/11/17 08:00 101 01/11/17 08:00 98.1 100 20 149/85 97 Nasal Cannula 2.0 01/11/17 07:21 Nasal Cannula 2.0 28 01/11/17 07:20 96 Nasal Cannula 2.0 28 01/11/17 07:20 98 20 Nasal Cannula 2.0 28 01/11/17 04:31 97.7 92 18 150/80 97 Nasal Cannula 01/11/17 03:35 76 01/11/17 00:52 96.7 90 18 133/72 96 Nasal Cannula 01/10/17 23:53 86 Intake and Output 01/11/17 01/12/17 19:00 07:00 # Voids 4 # Bowel Movements 3 Laboratory Tests 01/11/17 04:55: White Blood Count 6.8, Red Blood Count 4.03L, Hemoglobin 11.3L, Hematocrit 36.1L , Mean Corpuscular Volume 90, Mean Corpuscular Hemoglobin 28.1, Mean Corpuscular Hemoglobin Concent 31.3L, Red Cell Distribution Width 15.3H, Platelet Count 289, Mean Platelet Volume 8.5, Neutrophils (%) (Auto) 47.9, Lymphocytes (%) (Auto) 35.0, Monocytes (%) (Auto) 13.2H, Eosinophils (%) (Auto) 3.0, Basophils (%) (Auto) 0.9, Prothrombin Time 13.1H, Prothromb Time International Ratio 1.2H, Sodium Level 143, Potassium Level 4.1, Chloride Level 108H, Carbon Dioxide Level 29, Anion Gap 6, Blood Urea Nitrogen 18, Creatinine 0.7, Estimat Glomerular Filtration Rate , Glucose Level 133H, Calcium Level 8.8 , Total Bilirubin 0.3, Aspartate Amino Transf (AST/SGOT) 20, Alanine Aminotransferase (ALT/SGPT) 14, Alkaline Phosphatase 195H, Total Protein 7.9, Albumin 2.8L, Globulin 5.1, Albumin/Globulin Ratio 0.5L Height (Feet): 4 Height (Inches): 5.00 Weight (Pounds): 120 Respiratory/Chest: lungs clear Abdomen: soft Jossie Enrique MD Jan 11, 2017 21:33
--- NOTE | 2017-01-11 22:30 | General Progress Note ---
Assessment/Plan Assessment/Plan ASSESSMENT AND RECOMMENDATIONS: 1. Deep vein thrombosis, left leg. The patient started on Coumadin and Lovenox. Maintain INR between 2 and 3. 2. Anemia secondary to chronic disease, mild. Continue to closely monitor. 3. Coagulopathy secondary to use of Coumadin. 4. Azotemia secondary to dehydration. 5. Malnutrition secondary to decreased p.o. intake. 6. Acute kidney injury. . Continue to closely monitor. Nephrology consulted. 7. Alzheimer disorder. Continue to monitor as an outpatient. Subjective ROS Limited/Unobtainable: Yes Allergies: Coded Allergies: No Known Allergies (Unverified , 01/06/17) Subjective afebrile, no bleeding reported Objective Last 24 Hour Vital Signs Date Time Temp Pulse Resp B/P (MAP) Pulse Ox O2 Delivery O2 Flow Rate FiO2 01/11/17 21:09 80 106/60 01/11/17 20:14 98.2 80 18 106/60 96 Nasal Cannula 01/11/17 19:30 84 20 Nasal Cannula 2.0 28 01/11/17 19:30 96 Nasal Cannula 2.0 28 01/11/17 19:30 Nasal Cannula 2.0 28 01/11/17 16:30 97.0 85 20 142/80 95 Nasal Cannula 2.0 01/11/17 16:00 75 01/11/17 12:43 98.5 89 22 144/85 97 Nasal Cannula 2.0 01/11/17 12:00 72 01/11/17 08:25 100 149/85 01/11/17 08:00 101 01/11/17 08:00 98.1 100 20 149/85 97 Nasal Cannula 2.0 01/11/17 07:21 Nasal Cannula 2.0 28 01/11/17 07:20 96 Nasal Cannula 2.0 28 01/11/17 07:20 98 20 Nasal Cannula 2.0 28 01/11/17 04:31 97.7 92 18 150/80 97 Nasal Cannula 01/11/17 03:35 76 01/11/17 00:52 96.7 90 18 133/72 96 Nasal Cannula 01/10/17 23:53 86 Intake and Output 01/11/17 01/12/17 19:00 07:00 # Voids 4 # Bowel Movements 3 Laboratory Tests 01/11/17 04:55: White Blood Count 6.8, Red Blood Count 4.03L, Hemoglobin 11.3L, Hematocrit 36.1L , Mean Corpuscular Volume 90, Mean Corpuscular Hemoglobin 28.1, Mean Corpuscular Hemoglobin Concent 31.3L, Red Cell Distribution Width 15.3H, Platelet Count 289, Mean Platelet Volume 8.5, Neutrophils (%) (Auto) 47.9, Lymphocytes (%) (Auto) 35.0, Monocytes (%) (Auto) 13.2H, Eosinophils (%) (Auto) 3.0, Basophils (%) (Auto) 0.9, Prothrombin Time 13.1H, Prothromb Time International Ratio 1.2H, Sodium Level 143, Potassium Level 4.1, Chloride Level 108H, Carbon Dioxide Level 29, Anion Gap 6, Blood Urea Nitrogen 18, Creatinine 0.7, Estimat Glomerular Filtration Rate , Glucose Level 133H, Calcium Level 8.8 , Total Bilirubin 0.3, Aspartate Amino Transf (AST/SGOT) 20, Alanine Aminotransferase (ALT/SGPT) 14, Alkaline Phosphatase 195H, Total Protein 7.9, Albumin 2.8L, Globulin 5.1, Albumin/Globulin Ratio 0.5L Height (Feet): 4 Height (Inches): 5.00 Weight (Pounds): 120 General Appearance: no apparent distress EENT: normal ENT inspection Neck: normal alignment Respiratory/Chest: decreased breath sounds Extremities: non-tender Neurologic: no motor/sensory deficits Skin: normal pigmentation Frandy Flores Jan 11, 2017 22:30
[2017-01-12 00:26] VITALS: BP 124/80
[2017-01-12 04:21] VITALS: BP 120/80
[2017-01-12 08:45] VITALS: BP 136/67
[2017-01-12 08:45] LABS: INR 1.4 (0.9-1.1); PROTHROMBIN TIME 14.7 SEC (9.30-11.50)
[2017-01-12] MEDS: Gabapentin 300 MG/6 ML Soln GT SCH (08:57)
[2017-01-12] MEDS: Lactobacillus-GG tablet GT SCH (08:57)
[2017-01-12] MEDS: Ascorbic Acid 500mg tab GT SCH (08:57)
[2017-01-12] MEDS: Zinc Sulfate 220mg cap GT SCH (08:57)
[2017-01-12] MEDS: Metoprolol Tartrate 12.5mg TAB GT SCH (08:57)
[2017-01-12] MEDS: Multivitamins W/Minerals 15 ML UDC GT SCH (08:57)
[2017-01-12] MEDS: Exelon 1.5mg cap GT SCH (08:57)
[2017-01-12] MEDS: Enoxaparin 60mg Inj SUBQ SCH (09:01)
--- NOTE | 2017-01-12 09:14 | Nephrology Progress Note ---
Assessment/Plan Problem List: (1) DVT (deep venous thrombosis) (2) HTN, goal below 130/80 (3) Anemia (4) Hypothyroidism Assessment HTN- controlled DVT- Anemia- Low ferritin Alzheimers- HypoThyroid- TSH 11 Plan Plan: BP meds- IV Iron Monitor labs DC planning per orders Subjective ROS Limited/Unobtainable: No Constitutional: Reports: malaise Objective Objective Last 24 Hour Vital Signs Date Time Temp Pulse Resp B/P (MAP) Pulse Ox O2 Delivery O2 Flow Rate FiO2 01/12/17 08:57 91 136/67 01/12/17 08:45 97.6 91 18 136/67 Nasal Cannula 2.0 01/12/17 04:21 96.8 70 18 120/80 96 Nasal Cannula 01/12/17 04:00 79 01/12/17 00:26 97.6 84 18 124/80 94 Nasal Cannula 01/12/17 00:00 66 01/11/17 21:09 80 106/60 01/11/17 20:14 98.2 80 18 106/60 96 Nasal Cannula 01/11/17 20:00 82 01/11/17 19:30 84 20 Nasal Cannula 2.0 28 01/11/17 19:30 96 Nasal Cannula 2.0 28 01/11/17 19:30 Nasal Cannula 2.0 28 01/11/17 16:30 97.0 85 20 142/80 95 Nasal Cannula 2.0 01/11/17 16:00 75 01/11/17 12:43 98.5 89 22 144/85 97 Nasal Cannula 2.0 01/11/17 12:00 72 Laboratory Tests 01/12/17 07:55: Prothrombin Time 14.7H, Prothromb Time International Ratio 1.4H Height (Feet): 4 Height (Inches): 5.00 Weight (Pounds): 120 General Appearance: no apparent distress Objective PE not changed MAGDY ALONSO Jan 12, 2017 09:14
[2017-01-12] MEDS ORDERED: WARFARIN SODIUM6 MG GT (10:25)
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
--- NOTE | 2017-01-12 12:42 | Cardiology Report ---
APPROVED REPORT EXAM: Two-dimensional and M-mode echocardiogram with Doppler and color Doppler. INDICATION Congestive Heart Failure M-Mode DIMENSIONS Left Atrium (MM)2.7 (1.6-4.0cm) Aortic Root2.8 (2.0-3.7cm) Aortic Cusp Exc.1.7 (1.5-2.0cm) Technically difficult study due to poor acoustical windows. Patients breathing and position. M-mode measurements not obtainable due to cardiac structure. Normal left ventricular chamber size, systolic function and wall motion. Left ventricular ejection fraction estimated to be 50-55%. No evidence of left ventricular hypertrophy. No evidence of pericardial or pleural effusion. All other cardiac chamber sizes are within normal limits. Focal aortic valve sclerosis with adequate cusp excursion. Normal mitral valve leaflets with normal excursion. Normal mitral annulus and aortic root. Pulmonic valve not well visualized. Normal tricuspid valve structure. IVC is not obtainable. A color flow and spectral Doppler study was performed and revealed: No aortic regurgitation. Trace mitral regurgitation. Mitral diastolic velocities suggest reduced left ventricular relaxation c/w diastolic dysfunction grade 1. No tricuspid regurgitation.
--- NOTE | 2017-01-12 12:53 | Pulmonology Progress Note ---
Assessment/Plan Assessment/Plan 1. Deep vein thrombosis, left proximal popliteal vein. 2. History of recent pathologic fracture, left femur with deformity. 3. Severe dementia with contractures. 4. Dysphagia with gastric tube. 5. Anemia with hemoglobin of 11.4. 6. Mild hyperglycemia. 7. Protein-calorie malnutrition 8. HTN, controlled 9. SVT paroxysmal 10. Gangrene R foot cont Lovenox, Coumadin until INR >2 prognosis poor Subjective ROS Limited/Unobtainable: Yes Allergies: Coded Allergies: No Known Allergies (Unverified , 01/06/17) Objective Last 24 Hour Vital Signs Date Time Temp Pulse Resp B/P (MAP) Pulse Ox O2 Delivery O2 Flow Rate FiO2 01/12/17 10:22 82 Nasal Cannula 3.0 32 01/12/17 08:57 91 136/67 01/12/17 08:45 97.6 91 18 136/67 Nasal Cannula 2.0 01/12/17 08:00 86 01/12/17 04:21 96.8 70 18 120/80 96 Nasal Cannula 01/12/17 04:00 79 01/12/17 00:26 97.6 84 18 124/80 94 Nasal Cannula 01/12/17 00:00 66 01/11/17 21:09 80 106/60 01/11/17 20:14 98.2 80 18 106/60 96 Nasal Cannula 01/11/17 20:00 82 01/11/17 19:30 84 20 Nasal Cannula 2.0 28 01/11/17 19:30 96 Nasal Cannula 2.0 28 01/11/17 19:30 Nasal Cannula 2.0 28 01/11/17 16:30 97.0 85 20 142/80 95 Nasal Cannula 2.0 01/11/17 16:00 75 Intake and Output 01/12/17 01/13/17 19:00 07:00 # Bowel Movements 1 Objective deformity L femur General Appearance: no acute distress Respiratory/Chest: lungs clear Cardiovascular: normal rate Laboratory Tests 01/12/17 07:55: Prothrombin Time 14.7H, Prothromb Time International Ratio 1.4H Current Medications Medications (Trade) Dose Ordered Sig/Jovani Route PRN Reason Start Time Stop Time Status Last Admin Dose Admin Acetaminophen (Tylenol) 650 mg Q4H PRN GT fever 01/07/17 01:30 02/06/17 01:29 Acetaminophen/ Hydrocodone Bitart ([place] 5/325) 1 tab Q8H PRN GT For Pain 01/07/17 01:00 01/14/17 00:59 01/09/17 01:41 Ascorbic Acid (Vitamin C) 500 mg DAILY GT 01/07/17 09:00 02/06/17 08:59 01/12/17 08:57 Enoxaparin Sodium (Lovenox) 60 mg Q12HR SUBQ 01/11/17 21:00 02/10/17 20:59 01/12/17 09:01 Gabapentin (Neurontin) 300 mg THREE TIMES A DAY GT 01/07/17 13:00 02/06/17 12:59 01/12/17 08:57 Hydralazine HCl (Apresoline) 25 mg Q4H PRN GT bp over 160 syst 01/07/17 11:30 02/06/17 11:29 01/07/17 12:12 Lactobacillus Acidophilus (Culturelle) 1 tab THREE TIMES A DAY GT 01/07/17 09:00 02/06/17 08:59 01/12/17 08:57 Levothyroxine Sodium (Synthroid) 75 mcg DAILY@0630 GT 01/07/17 06:30 02/06/17 06:29 01/12/17 06:28 Metoprolol Tartrate (Lopressor) 25 mg Q12HR GT 01/09/17 21:00 02/08/17 20:59 01/12/17 08:57 Multivitamins (Multivitamins W/ Minerals 15ml Liquid) 15 ml TID GT 01/07/17 09:00 02/06/17 08:59 01/12/17 08:57 Rivastigmine Tartrate (Exelon) 3 mg TWICE A DAY GT 01/07/17 09:00 02/06/17 08:59 01/12/17 08:57 Warfarin Sodium (Coumadin per pharmacy) 1 ea DAILY PRN MISC PER RX PROTOCOL 01/07/17 12:00 02/06/17 11:59 Warfarin Sodium (Coumadin) 10 mg COUMADIN ONCE ORAL 01/12/17 17:00 01/12/17 17:01 Zinc Sulfate (Zinc Sulfate) 220 mg DAILY GT 01/07/17 09:00 02/06/17 08:59 01/12/17 08:57 CATRACHITA DELAROSA Jan 12, 2017 12:53
[2017-01-12 12:58] VITALS: BP 126/67
[2017-01-12] MEDS ORDERED: Sterile Water Irrig 1000ml IRRIG ONE (13:29)
--- NOTE | 2017-01-12 13:41 | Cardiac Electrophysiology PN ---
Assessment/Plan Assessment/Plan 1. Supraventricular tachycardia. No recurrence on Metoprolol 25 mg twice a day. 2. Lower extremity deep venous thrombosis on Lovenox and Coumadin.INR 1.4 today 3. Hypertension on metoprolol 25 mg twice a day and prn hydralazine 4. Hypothyroidism on Synthroid. 5. Dysphagia, status post PEG 6. Left femur pathological fracture. Evaluated by Dr. Barajas found the patient is not a surgical candidate. HAYDER RN Subjective Subjective No events overnight. DC planning today back to [facility]. No arrhythmias on tele. Objective Last 24 Hour Vital Signs Date Time Temp Pulse Resp B/P (MAP) Pulse Ox O2 Delivery O2 Flow Rate FiO2 01/12/17 12:58 96.7 19 126/67 Nasal Cannula 2.0 01/12/17 10:22 100 Nasal Cannula 3.0 32 01/12/17 10:22 82 Nasal Cannula 3.0 32 01/12/17 10:22 Nasal Cannula 3.0 32 01/12/17 08:57 91 136/67 01/12/17 08:45 97.6 91 18 136/67 Nasal Cannula 2.0 01/12/17 08:00 86 01/12/17 04:21 96.8 70 18 120/80 96 Nasal Cannula 01/12/17 04:00 79 01/12/17 00:26 97.6 84 18 124/80 94 Nasal Cannula 01/12/17 00:00 66 01/11/17 21:09 80 106/60 01/11/17 20:14 98.2 80 18 106/60 96 Nasal Cannula 01/11/17 20:00 82 01/11/17 19:30 84 20 Nasal Cannula 2.0 28 01/11/17 19:30 96 Nasal Cannula 2.0 28 01/11/17 19:30 Nasal Cannula 2.0 28 01/11/17 16:30 97.0 85 20 142/80 95 Nasal Cannula 2.0 01/11/17 16:00 75 Intake and Output 01/12/17 01/13/17 19:00 07:00 # Bowel Movements 1 Laboratory Tests Test 01/12/17 07:55 Prothrombin Time 14.7 SEC (9.30-11.50) H Prothromb Time International Ratio 1.4 (0.9-1.1) H Objective HEAD AND NECK: No JVD. LUNGS: Clear. CARDIOVASCULAR: Regular S1 and S2 with no gallop or murmur. ABDOMEN: Soft.PEG in place EXTREMITIES: Swelling of the left leg with restricted movement. PRANAV KRISHNAMURTHY Jan 12, 2017 13:41
--- NOTE | 2017-01-12 16:00 | General Progress Note ---
Assessment/Plan Assessment/Plan ASSESSMENT AND RECOMMENDATIONS: 1. Deep vein thrombosis, left leg. The patient started on Coumadin and Lovenox. Maintain INR between 2 and 3. 2. Anemia secondary to chronic disease, mild. Continue to closely monitor. --> hgb goal above 7. 3. Coagulopathy secondary to use of Coumadin. 4. Malnutrition secondary to decreased p.o. intake. 5. Acute kidney injury. Continue to closely monitor. Nephrology following 6. Alzheimer disorder. Continue to monitor as an outpatient. Subjective ROS Limited/Unobtainable: Yes Allergies: Coded Allergies: No Known Allergies (Unverified , 01/06/17) Subjective nonverbal Objective Last 24 Hour Vital Signs Date Time Temp Pulse Resp B/P (MAP) Pulse Ox O2 Delivery O2 Flow Rate FiO2 01/12/17 12:58 96.7 19 126/67 Nasal Cannula 2.0 01/12/17 10:22 100 Nasal Cannula 3.0 32 01/12/17 10:22 82 Nasal Cannula 3.0 32 01/12/17 10:22 Nasal Cannula 3.0 32 01/12/17 08:57 91 136/67 01/12/17 08:45 97.6 91 18 136/67 Nasal Cannula 2.0 01/12/17 08:00 86 01/12/17 04:21 96.8 70 18 120/80 96 Nasal Cannula 01/12/17 04:00 79 01/12/17 00:26 97.6 84 18 124/80 94 Nasal Cannula 01/12/17 00:00 66 01/11/17 21:09 80 106/60 01/11/17 20:14 98.2 80 18 106/60 96 Nasal Cannula 01/11/17 20:00 82 01/11/17 19:30 84 20 Nasal Cannula 2.0 28 01/11/17 19:30 96 Nasal Cannula 2.0 28 01/11/17 19:30 Nasal Cannula 2.0 28 01/11/17 16:30 97.0 85 20 142/80 95 Nasal Cannula 2.0 01/11/17 16:00 75 Intake and Output 01/12/17 01/13/17 19:00 07:00 # Bowel Movements 1 Laboratory Tests 01/12/17 07:55: Prothrombin Time 14.7H, Prothromb Time International Ratio 1.4H Height (Feet): 4 Height (Inches): 5.00 Weight (Pounds): 120 General Appearance: no apparent distress EENT: PERRL/EOMI Neck: normal alignment Cardiovascular: normal peripheral pulses Respiratory/Chest: chest wall non-tender Extremities: normal range of motion Neurologic: no motor/sensory deficits Skin: normal pigmentation Frandy Flores Jan 12, 2017 16:00
[2017-01-12] MEDS ORDERED: Warfarin Sodium 10mg ORAL ONE (17:00)
--- NOTE | 2017-01-13 13:20 | Discharge Summary ---
Discharge Summary Hospital Course Date of Admission Jan 06, 2017 at 21:40 Date of Discharge Jan 12, 2017 at 13:30 Admitting Diagnosis DVT ED Arias is a 76 year old female who was admitted on Jan 06, 2017 at 21: 40 for Deep Vein Thrombosis Hospital Course dc summary #[id number] Discharge Medications Continued Medications: Ascorbic Acid* (Vitamin C*) 500 Mg Tablet 500 MG GT BID, #30 TAB 0 Refills Gabapentin* (Neurontin*) 100 Mg Capsule 300 MG GT THREE TIMES A DAY, CAP Hydrocodone Bit/Acetaminophen 5-325* ([place] 5-325*) 1 Each Tablet 1 TAB GT Q8HR PRN for For Pain, TAB 0 Refills Ipratropium/Albuterol Sulfate (DuoNeb 0.5-3(2.5)mg/3ml) 3 Ml Ampul.neb 3 ML HHN, EA L. Acidophilus/Pectin, [place] (Acidophilus Capsule) 1 Each Capsule 1 EACH GT, CAP Levothyroxine Sodium* (Levothyroxine Sodium*) 75 Mcg Tablet 75 MCG GT DAILY, TAB Take in the morning on an empty stomach, at least 30 minutes before food. Multivitamin With Minerals (Multivitamins With Minerals*) 1 Each Tablet 1 TAB GT DAILY, TAB Rivastigmine Tartrate (Rivastigmine) 3 Mg Capsule 3 MG GT BID, CAP Warfarin Sod* (Warfarin Sod*) 6 Mg Tablet 6 MG GT QHS, TAB Zinc Sulfate (Zinc Sulfate*) 220 Mg Capsule 220 MG GT THREE TIMES A DAY, CAP 0 Refills Discharge Condition Upon Discharge: stable Discharge Disposition Patient was discharged to SNF/Subacute Facility(03) Discharge Diagnoses: Discharge Instructions Discharge Instructions Special Instructions I have been assigned to complete a D/C Summary on this account. I was not involved in the patient management Lissette Plaza NP (Vanchtein) Jan 13, 2017 13:20
--- NOTE | 2017-01-13 22:45 | Discharge Summary 2 SIG ---
DATE OF ADMISSION: 01/06/2017 DATE OF DISCHARGE: 01/12/2017 REASON FOR ADMISSION: A 76-year-old female with history of severe dementia, hypertension, contracture, osteoporosis, and hypothyroidism, presented to emergency department after increased left lower extremity swelling. The patient was a poor historian, unable to provide any history due to underlying dementia. Venous duplex revealed acute nonocclusive thrombus, left lower extremity popliteal vein. The patient started on anticoagulation in the emergency department and transferred to the floor for further management. HOSPITAL STAY: The patient admitted. The patient was on Lovenox and Coumadin to bridge to the therapeutic INR. Booking Manager followed. The patient had evidence of left femur pathological fracture. Patient was seen and evaluated by orthopedic surgeon. He concluded that the patient was not a surgical candidate, given severe contracture, osteoporosis, and acute DVT. He recommended conservative treatment and pain management. Plating Operator closely followed. The patient had episode of supraventricular tachycardia. The patient started on beta-melanie, no recurrence of SVT after beta blockers started. Blood pressure was managed with beta-melanie and hydralazine on as needed basis. Blood pressure controlled. Echocardiogram revealed ejection fraction of 50% to 55%. Lipid panel was stable. Strict aspiration precautions were maintained. The patient was receiving G-tube feeding, able to tolerate. Booking Manager closely followed for anticoagulation. Anemia workup revealed evidence of anemia of chronic disease. Booking Manager recommended to transfuse as needed with goal to keep hemoglobin above 7. Nephrology followed. Nephrology recommended to monitor renal parameters and electrolytes. Avoid nephrotoxic. The patient noted elevated TSH. Dose of Synthroid was adjusted as per senior hr business partner. Check TFT in one month. Chest x-ray was negative for any acute cardiopulmonary pathology. Sound Engineer followed. Per manager validation, the patient had poor overall prognosis. He recommended to continue strict aspiration precaution. Blood cultures were negative. Wound care provided for multiple deep tissue injuries, present on admission. Dietary recommendation implemented regarding tube feeding and recommended calorie. The patient was stable for discharge back to custodial facility. FINAL DIAGNOSES: 1. Acute deep venous thrombosis, left lower extremity popliteal vein. 2. Supraventricular tachycardia . ( no recurrence after beta-melanie started). 3. Hypertension. 4. Hypothyroidism. 5. Dysphagia, status post percutaneous endoscopic gastrostomy. 6. Left femur pathological fracture. 7. Severe dementia with contractures. 8. Dysphagia, gastrostomy tube 9. Osteoporosis. 10.Anemia of chronic disease. 11. Protein-calorie malnutrition. 12. Multiple deep tissue injury, present on admission. DISCHARGE MEDICATIONS: See medication reconciliation list. DISCHARGE INSTRUCTIONS: The patient was discharged to custodial facility. Follow up with medical doctor at the facility. Jossie Enrique M.D. I have been assigned to dictate discharge summary on this account and I was not involved in the patient's management. Lissette BenedictUpstate University Hospital Community CampusShauna N.PVenessa DR: Elio JOB#: [id number] CC: BARAK
== END 2017-01-12 13:30 | DRG 197 ==
LOC: EMR 20:50 → 2E 21:40 → EDBEDREQ 22:08 → 2E 23:14
DX: I82.432 Acute embolism and thrombosis of left popliteal vein (principal); N17.9 Acute kidney failure, unspecified; E46 Unspecified protein-calorie malnutrition; I96 Gangrene, not elsewhere classified; D68.9 Coagulation defect, unspecified; R13.10 Dysphagia, unspecified; M80.052A Age-related osteoporosis with current pathological fracture, left femur, initial encounter for fracture; G30.9 Alzheimer's disease, unspecified; F02.80 Dementia in other diseases classified elsewhere, unspecified severity, without behavioral disturbance, psychotic disturbance, mood disturbance, and anxiety; Z93.1 Gastrostomy status; D63.8 Anemia in other chronic diseases classified elsewhere; I10 Essential (primary) hypertension; I47.1 Supraventricular tachycardia; E86.0 Dehydration; R73.9 Hyperglycemia, unspecified; Z68.30 Body mass index [BMI] 30.0-30.9, adult; Z23 Encounter for immunization; K59.00 Constipation, unspecified; E03.9 Hypothyroidism, unspecified
CPT/HCPCS: 36415; 71010; 80053; 80061; 81003; 82550; 82553; 82607; 82728; 82746; 82977; 83036; 83540; 83550; 83605; 83735; 83880; 84100; 84443; 84484; 84550; 85025; 85610; 85730; 86140; 87040; 87081; 90630; 93005; 93306; 93971; 94640; 94664; 94760; 99285; J7620